=== PATIENT | male | born 1935 | race Asian ===

== ENCOUNTER 2016-11-09 08:34 | Inpatient (IN) | payer OTHER ==
[~2016-11-09] VITALS: Ht 170.2 cm; Wt 63.0 kg
--- NOTE | ~2016-11-09 | EKG ---
[place] [address] [facility] [place] [address] ELECTROCARDIOGRAM REPORT Name: NILA MCCOY Room #: 430-P ADM IN .R.#: [id number] Admission: 11/09/16 Attend Phys: Ian Wolf MD Discharge: Date of : 31 Report #: [id number] THIS REPORT FOR: //name// [facility] ED Test Date: 2016-11-09 Test Time: 08:54:15 Pat Name: NILA MCCOY Department: Room: 430 Gender: M Customer Assistance Associate: Filemon ARCE : 1935 Requested By: Deanna Wright Order Number: [id number] MD: Calvin Paul Measurements Intervals [place] Rate: 108 P: -24 RI: 170 QRS: 7 QRSD: 86 T: 32 QT: 377 QTc: 506 Interpretive Statements Sinus tachycardia with occasional atrial premature complexes Borderline ST depression, diffuse leads Prolonged QT interval No previous ECG available for comparison Electronically Signed On 11-10-2016 8:51:12 SALES ATTENDANT by Calvin Paul [email or web address] <ELECTRONICALLY SIGNED> By: Calvin Paul MD, [facility] 11/10/16 0851 Calvin Paul MD, [facility] /EPI
--- NOTE | ~2016-11-09 | 2DMMODE ---
[facility] [place] [address] 2 D/M-MODE ECHOCARDIOGRAM Name: NILA MCCOY Roberto Carlos Room #: 430-P [facility] IN .#: [id number] Admission: 11/09/16 Attend Phys: Ian Wolf MD Discharge: Date of : 31 Date of Service: 11/10/16 1519 Report #: [id number] THIS REPORT FOR: //name// Transthoracic Echocardiography Ordering physician: Lorena Hassan Referring physician: Emiliano Weber Saida A. Travel Money Advisor: Zakia Peña Indications/History: ESTRADA, edema, elevated BNP. Hx: HTN, DM BP: 143 / HR: 95bpm Height: 67in Weight: 139.7lb 87 Study data: M-mode, complete 2D, complete spectral Doppler, and color Doppler. Location: Bedside. Routine. Image quality was adequate. The parasternal window was low. 2D measurements Normal Normal LVID ED 47.4mm 36-57 IVS ED 12.2mm 6-11 LVID ES 33.2mm 23-40 LVPW ED 12.9mm 6-11 LA volume 30ml/m2 16-28 AoRoot diam 21-37 index ED LVOT diameter 21mm 18-23 Findings: Left ventricle: The cavity size was normal. Wall thickness was increased in a pattern of mild LVH. Systolic function was lownormal. The estimated ejection fraction was in the range of 50%. Wall motion was normal. Right ventricle: The cavity size was normal. Systolic function was normal. Right atrium: The atrium was normal in size. Left atrium: The atrium was normal in size. Volume index: 30ml/m2 (S). Aortic valve: Mildly thickened leaflets. Doppler: There was no stenosis. No regurgitation. Peak velocity: 157cm/s (S). [facility] [address] [place] [address] 2 D/M-MODE ECHOCARDIOGRAM Name: NILA MCCOY JR Room #: 430-P [facility] IN ..#: [id number] Admission: 11/09/16 Attend Phys: Ian Wolf MD Discharge: Date of : 31 Date of Service: 11/10/16 1519 Report #: [id number] Mitral valve: Mildly calcified annulus. Doppler: There was no evidence for stenosis. Mild regurgitation. Tricuspid valve: Structurally normal valve. Doppler: There was no evidence for stenosis. Trivial regurgitation. Regurgitant peak velocity: 243cm/s. Peak RV-RA gradient: 24mm Hg (S). Pulmonic valve: Poorly visualized. Doppler: There was no evidence for stenosis. Trivial regurgitation. Pericardium: There was no pericardial effusion. Aorta: Aortic root: The aortic root was normal in size. Pulmonary artery: Systolic pressure was estimated to be 30mm Hg. Diastolic function: Doppler parameters are consistent with abnormal left ventricular relaxation (grade 1 diastolic dysfunction). Systemic veins: Inferior vena cava: The vessel was normal in size; the respirophasic diameter changes were in the normal range (= 50%). Conclusions 1. Left ventricle: The cavity size was normal. Wall thickness was increased in a pattern of mild LVH. Systolic function was lownormal. The estimated ejection fraction was in the range of 50%. Wall motion was normal. Doppler parameters are consistent with abnormal left ventricular relaxation (grade 1 diastolic dysfunction). 2. Aortic valve: Mildly thickened leaflets. There was no stenosis. No regurgitation. 3. Mitral valve: Mildly calcified annulus. Mild regurgitation. 4. Pericardium, extracardiac: There was no pericardial effusion. 5. Pulmonary arteries: Systolic pressure was estimated to be 30mm Hg. <ELECTRONICALLY SIGNED> By: Calvin Paul MD, [facility] 11/10/16 1630 1519 29 Calvin Paul MD, [facility] /kate
[~2016-11-09 08:34] MED LIST: APIDRA SOL100 UNIT/1 SQ; CALCIUM 600 +1 EAC1 PO; CLONAZEPAM 0.50.5 M1 PO; FUROSEMIDE 20 M20 MG PO; GLYBURID-METFO1 EAC2 PO; JANUVIA100 MG PO; LEVEMIR SUBQ; LISINOPRIL20 MG PO; PROTONIX40 M1 PO; SLOW RELEASE I160 M1 PO
[2016-11-09 08:35] VITALS: BP 193/73
[2016-11-09 09:13] LABS: ABSOLUTE NEUTROPHILS 3.3 thou/uL (1.4-8.2); BASOPHILS 0.8 % (0.0-2.0); HEMATOCRIT 27.1 % (42.0-52.0); HEMOGLOBIN 8.3 gm/dL (14.0-18.0); MCH 24.5 pg (26.0-34.0); MCHC 30.6 % (28.0-37.0); MCV 79.9 fL (80.0-100.0); MONOCYTES 8.7 % (1.0-8.0); PLATELET COUNT 228 thou/uL (150-400); POLYS 69.5 % (36.0-66.0); RBC 3.39 mil/uL (4.50-6.00); RDW 15.6 % (10.5-14.5); WBC 4.8 thou/uL (4.0-11.0)
[2016-11-09 09:15] LABS: MANUAL DIFF NO
[2016-11-09 09:19] LABS: ANION GAP 11 mmol/L (7-16); BUN 17 mg/dL (7-18); CALCIUM 9.1 mg/dL (8.5-10.1); CHLORIDE 103 mmol/L (98-107); CO2 24 mmol/L (21-32); CREATININE 1.2 mg/dL (0.6-1.3); GLUCOSE 304 mg/dL (70-99); SODIUM 138 mmol/L (136-145)
[2016-11-09 09:32] LABS: NT-PRO BRAIN NAT PEPTIDE 314 pg/mL (<300); TROPONIN-I < 0.04 ng/mL (<0.04-0.07)
[2016-11-09 12:22] VITALS: BP 131/68; BP 133/73; BP 148/87; BP 150/77
[2016-11-09 16:39] VITALS: BP 149/70
[2016-11-09 17:29] VITALS: BP 173/75
[2016-11-09 20:00] VITALS: BP 151/65
[2016-11-10 04:49] VITALS: BP 152/67
[2016-11-10 06:55] LABS: ABSOLUTE NEUTROPHILS 3.2 thou/uL (1.4-8.2); BASOPHILS 0.9 % (0.0-2.0); EOSINOPHILS 3.1 % (0.0-3.0); HEMOGLOBIN 9.9 gm/dL (14.0-18.0); LYMPHOCYTES 18.5 % (24.0-44.0); MCH 24.3 pg (26.0-34.0); MCHC 30.8 % (28.0-37.0); MCV 78.8 fL (80.0-100.0); MONOCYTES 11.1 % (1.0-8.0); PLATELET COUNT 237 thou/uL (150-400); POLYS 66.4 % (36.0-66.0); RBC 4.06 mil/uL (4.50-6.00); RDW 15.3 % (10.5-14.5); WBC 4.9 thou/uL (4.0-11.0)
[2016-11-10 06:58] LABS: MANUAL DIFF NO
[2016-11-10 07:22] LABS: ALBUMIN 3.8 g/dL (3.4-5.0); CALCIUM 9.4 mg/dL (8.5-10.1); CREATININE 1.1 mg/dL (0.6-1.3); MAGNESIUM 2.1 mg/dL (1.8-2.4); POTASSIUM 3.8 mmol/L (3.5-5.1); TOTAL BILIRUBIN 0.5 mg/dL (<0.1-1.0); TOTAL PROTEIN 7.8 g/dL (6.4-8.2)
[2016-11-10 08:00] VITALS: BP 143/87
[2016-11-10 16:42] VITALS: BP 147/63
[2016-11-10 20:00] VITALS: BP 136/72
[2016-11-11 05:58] LABS: HEMATOCRIT 31.5 % (42.0-52.0); HEMOGLOBIN 9.8 gm/dL (14.0-18.0); MCH 24.3 pg (26.0-34.0); MCV 78.5 fL (80.0-100.0); PLATELET COUNT 230 thou/uL (150-400); RBC 4.02 mil/uL (4.50-6.00); RDW 15.3 % (10.5-14.5); WBC 5.3 thou/uL (4.0-11.0)
[2016-11-11 06:00] VITALS: BP 145/59
[2016-11-11 06:00] LABS: MANUAL DIFF YES
[2016-11-11 06:09] LABS: CREATININE 1.2 mg/dL (0.6-1.3)
[2016-11-11 06:46] LABS: ABSOLUTE NEUTROPHILS 3.6 thou/uL (1.4-8.2); TOTAL CELL COUNT 100
[2016-11-11] MEDS ORDERED: METFORMIN HCL500 MG PO (13:02)
[2016-11-11 13:31] VITALS: BP 153/67
== END 2016-11-11 16:26 | disposition home or self-care (01) | DRG 812 ==
LOC: ER 08:34 → 4E 11:37 → EROBS 11:37 → 4E 16:36
PROVIDERS: Emergency Medicine; Internal Medicine Endocrinology, Diabetes & Metabolism; Nurse Practitioner
PROC: 30233N1 Transfusion of Nonautologous Red Blood Cells into Peripheral Vein, Percutaneous Approach (ICD-10-PCS; principal; 2016-11-09)
DX: D64.9 Anemia, unspecified (principal); K92.2 Gastrointestinal hemorrhage, unspecified; E11.9 Type 2 diabetes mellitus without complications; M54.9 Dorsalgia, unspecified; K62.1 Rectal polyp; I50.9 Heart failure, unspecified; I11.0 Hypertensive heart disease with heart failure; E53.8 Deficiency of other specified B group vitamins; G89.29 Other chronic pain; R00.0 Tachycardia, unspecified; I87.8 Other specified disorders of veins; Q27.33 Arteriovenous malformation of digestive system vessel; Z87.891 Personal history of nicotine dependence; Z80.0 Family history of malignant neoplasm of digestive organs; Z91.14 Patient's other noncompliance with medication regimen; Z79.899 Other long term (current) drug therapy
CPT/HCPCS: 10783

== ENCOUNTER 2017-03-13 11:07 | Inpatient (IN) | payer OTHER ==
[~2017-03-13] VITALS: Ht 170.2 cm; Wt 72.1 kg
--- NOTE | ~2017-03-13 | HC ---
[facility] [place] [address] CONSULTATION Name: NILA MCCOY Room #: 431-P ADM IN M.R.#: [id number] Admission: 03/13/17 Attend Phys: Mikhail Duff MD Discharge: Date of : 33 Report #: [id number] THIS REPORT FOR: //name// CC: Mikhail Johnsonquez DATE OF SERVICE: 03/14/2017 REASON FOR CONSULTATION: Anemia. CONSULTING PHYSICIAN: Mikhail Duff MD. HISTORY OF PRESENT ILLNESS: This is an elderly gentleman who is well known to our GI service. 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 I suspect he has aortic malformation also in his small intestine based on the fact that these are notorious to be present throughout the GI tract. He has been admitted with a hemoglobin of 5.3 along with shortness of breath. He also carries a diagnosis of diabetes mellitus, and hypertension. He is seen by the GI team here at [facility] and underwent an upper and lower endoscopy in August 2016 that showed AVMs in stomach and colon. He also had small rectal polyp. There was tubular adenoma. He has not any bright red blood or melanotic stools. He denies any abdominal pain. REVIEW OF SYSTEMS: As in HPI, otherwise 10.10 negative. PAST MEDICAL HISTORY: 1. Gastrointestinal AVMs. 2. Hypertension. 3. Diabetes mellitus. 4. Anemia. 5. Hemorrhoids. ALLERGIES: No known drug allergies. MEDICATIONS: Reviewed and are negative. SOCIAL HISTORY: Denies tobacco, alcohol or illegal drug use. FAMILY HISTORY: There are no family members with colorectal cancer or GI malignancies. PHYSICAL EXAMINATION: GENERAL: Alert and oriented to time, place and person, cooperative, appears in moderate distress with shortness of breath. VITAL SIGNS: Temperature 98.1, heart rate 89, respiration 16, blood pressure [facility] [address] [place] [address] CONSULTATION Name: NILA MCCOY JR Room #: 431-P [facility]#: [id number] Admission: 03/13/17 Attend Phys: Mikhail Duff MD Discharge: Date of : 33 Report #: [id number] 125/75, oxygen saturation 100% on 6 liters oxygen. NECK: Supple. Midline trachea. Thyroid nonpalpable. CARDIOVASCULAR: Regular rhythm. No murmurs. RESPIRATORY: Bilateral crackles noted. ABDOMEN: Soft, nontender. Bowel sounds are present. EXTREMITIES: No cyanosis, clubbing or edema. SKIN: Warm and dry. No rashes present. NEUROLOGIC: Cranial nerves were grossly intact. No focal deficits. LABORATORY DATA: Hemoglobin 5.3 on admission, hemoglobin 7.2 after 2 units of transfusion. White count 6.6, platelets 191. Normal liver functions, creatinine 1.2. DIAGNOSTIC IMPRESSION AND PLAN: Anemia. This appears to be multifactorial anemia with underlying diabetes mellitus, hypertension and also blood loss from slow oozing from arteriovenous malformations. Hemoglobin 5.2 at admission after 2 units of transfusion is 7.2. RECOMMENDATIONS: 1. Once the patients have arterial venous malformations in the GI tract, there are thousands of AVMs in the small intestine. These ooze slowly and can result in anemia. It is very difficult to cauterize all these AVMs considering the fact that there are so many and they return after cauterization. Hence, I recommend obtaining CBC on a monthly basis and to transfuse once the hemoglobin drops than 7.0. This can be done on an outpatient basis so as to prevent inpatient admissions. 2. I do not recommend any further endoscopic evaluation at this time. Thank you for allowing me to participate in the care of the patient. By: 0938 2104 Elieser Bowie MD /babak
--- NOTE | ~2017-03-13 | H ---
[facility] [place] [address] HISTORY AND PHYSICAL Name: NILA MCCOY Roberto Carlos CHASE Room #: 431-P [facility] IN M.R.#: [id number] Admission: 03/13/17 Attend Phys: Mikhail Duff MD Discharge: Date of : 33 Report #: [id number] THIS REPORT FOR: //name// CC: Mikhail Weber REASON FOR PRESENTATION: Shortness of breath. HISTORY OF PRESENT ILLNESS: This is very well known patient to us. 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 He presented complaining of shortness of breath on exertion. He denies any GI symptoms. He previously required blood transfusions and had an upper endoscopy and lower endoscopy as of August of 2016 and at that time, he had those AV malformations proven, seen in his stomach and his colon. He also had small rectal polyp that was consistent with tubular adenoma. He denies any other illnesses that might contribute to anemia. On presentation to the emergency room, he was found to have a hemoglobin of 5.6 and was admitted for further evaluation and management. PAST MEDICAL HISTORY: 1. Repeated episodes of GI bleeding. 2. Hypertension. 3. Diabetes mellitus. 4. AV malformations. 5. Hemorrhoids. MEDICATIONS: 1. Metformin. 2. Pantoprazole. 3. Lisinopril. 4. Sitagliptin. 5. Insulin Levemir 53 units. 6. Calcium carbonate p.r.n. ALLERGIES: No known drug allergies. REVIEW OF SYSTEMS: GENERAL: No fever or chills, but significant shortness of breath on exertion. Significant weakness. CARDIOVASCULAR: Significant for shortness of breath. PULMONARY: No cough or hemoptysis but significant for shortness of breath. GASTROINTESTINAL: As per the history of present illness but no known hematochezia or melena. SKIN: Chronic bilateral lower extremity venous stasis changes. NEUROLOGICAL: No weakness. No headache. No dizziness. PHYSICAL EXAMINATION: [facility] [address] [place] [address] HISTORY AND PHYSICAL Name: NADINENILA P Room #: 431-P [facility]#: [id number] Admission: 03/13/17 Attend Phys: Mikhail Duff MD Discharge: Date of : 33 Report #: [id number] GENERAL: He is alert, oriented, in no apparent distress. VITAL SIGNS: Pulse is slightly tachycardic at 113, blood pressure 144/73, temperature 36.8. HEAD AND NECK: No jugular venous distention, no bruit, no thyromegaly. CHEST: Clear to auscultation bilaterally. CARDIOVASCULAR: Regular with no rub detected. ABDOMEN: Distended. No tenderness, no guarding, no rigidity. LOWER EXTREMITIES: +2 edema with chronic venous stasis changes. LABORATORY VALUES: Reviewed. Hemoglobin is 5.7 with an MCV of 76. Chemistry: All within normal range other than glucose of 201. ASSESSMENT, IMPRESSION, PLAN: 1. Gastrointestinal bleeding. 2. Anemia. 3. Hypertension. 4. Diabetes mellitus. 5. 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 6. Admission. 7. Because of his symptoms will transfuse. 8. Serial H and H. 9. PPI. 10. Resume blood pressure, blood sugar medications. 11. GI consultation. 12. Ultimately we will need fci plan for his arteriovenous malformations including steroids, thalidomide and we will defer that to the GI team. <ELECTRONICALLY SIGNED> By: Mikhail Duff MD 03/14/17 0656 1239 1432 Mikhail Duff MD /nt
--- NOTE | ~2017-03-13 | EKG ---
[place] [address] [facility] [facility] [place] [address] ELECTROCARDIOGRAM REPORT Name: NILA MCCOY Room #: 431-P ADM IN M.R.#: [id number] Admission: 03/13/17 Attend Phys: Mikhail Duff MD Discharge: Date of : 33 Report #: [id number] THIS REPORT FOR: //name// [facility] ED Test Date: 2017-03-13 Test Time: 11:55:00 Pat Name: NILA MCCOY Department: Room: [facility] Gender: M Global Creative Chairman: Hilary ROSSI : 1935 Requested By: Deanna Wright Order Number: [id number] MD: Calvin Paul Measurements Intervals [place] Rate: 102 P: 44 NV: 209 QRS: 38 QRSD: 93 T: 190 QT: 329 QTc: 429 Interpretive Statements Probable Sinus tachycardia Frequent premature ventricular complexes Borderline prolonged NV interval Nonspecific ST and T wave abnormality Compared to ECG 11/09/2016 08:54:15 Ventricular premature complex(es) now present Electronically Signed On 03-14-2017 13:59:49 CDT by Calvin Paul [email or web address] <ELECTRONICALLY SIGNED> By: Calvin Paul MD, [facility] 03/14/17 1359 1155 1155 Calvin Paul MD, [facility] /EPI
--- NOTE | ~2017-03-13 | EKG ---
[address] [place] [address] ELECTROCARDIOGRAM REPORT Name: NILA MCCOY Room #: 431-P ADM IN M.R.#: [id number] Admission: 03/13/17 Attend Phys: Mikhail Duff MD Discharge: Date of : 33 Report #: [id number] THIS REPORT FOR: //name// [facility] ED Test Date: 2017-03-13 Test Time: 12:51:31 Pat Name: NILA MCCOY Department: Room: [facility] Gender: M Cleaning Supervisor: Hilary ROSSI : 1935 Requested By: Deanna Wright Order Number: [id number] MD: Calvin Paul Measurements Intervals [place] Rate: 108 P: -28 NV: 198 QRS: 22 QRSD: 85 T: 180 QT: 301 QTc: 404 Interpretive Statements Sinus tachycardia Ventricular premature complex Repol abnrm suggests ischemia Compared to ECG 11/09/2016 08:54:15 No significant change was found Electronically Signed On 03-14-2017 14:00:51 CDT by Calvin Paul [email or web address] <ELECTRONICALLY SIGNED> By: Calvin Paul MD, [facility] 03/14/17 1400 1251 1251 Calvin Paul MD, [facility] /EPI
[2017-03-13 11:07] VITALS: BP 144/73
[~2017-03-13 11:07] MED LIST changes: +METFORMIN HCL500 MG PO
[2017-03-13 11:24] LABS: ABSOLUTE NEUTROPHILS 2.8 thou/uL (1.4-8.2)
[2017-03-13 11:26] LABS: EOSINOPHILS 2.9 % (0.0-3.0); LYMPHOCYTES 26.8 % (24.0-44.0); MCH 22.9 pg (26.0-34.0); MCHC 29.8 g/dL (28.0-37.0); MCV 76.7 fL (80.0-100.0); MONOCYTES 7.8 % (1.0-8.0); PLATELET COUNT 224 thou/uL (150-400); POLYS 61.5 % (36.0-66.0); RBC 2.46 mil/uL (4.50-6.00); WBC 4.5 thou/uL (4.0-11.0)
[2017-03-13 11:30] LABS: MANUAL DIFF NO
[2017-03-13 11:32] LABS: HEMATOCRIT 18.9 % (42.0-52.0); HEMOGLOBIN 5.6 gm/dL (14.0-18.0)
[2017-03-13 11:39] LABS: ABG SAMPLE TYPE ARTERIAL; BE(vivo) -4.2 mmol/L (-2 to +3); HCO3 19.9 mmol/L (22.0-26.0); LACTATE 3.26 mmol/L (0.5-2.0); O2Hb 90.8 % (92.0-98.0); PCO2 31.8 mmHg (35.0-45.0); PO2 69.8 mmHg (80.0-100.0); pH 7.415 (7.360-7.450); sO2 94.5 % (92.0-98.0); tCO2 20.9 mmol/L (24.0-30.0)
[2017-03-13 11:40] LABS: STICK SITE R.RADIAL
[2017-03-13 11:46] LABS: CALCIUM 8.5 mg/dL (8.5-10.1); CREATININE 1.2 mg/dL (0.7-1.3); POTASSIUM 3.5 mmol/L (3.5-5.1)
[2017-03-13 12:44] LABS: MCHC 29.9 g/dL (28.0-37.0); MCV 76.8 fL (80.0-100.0); RBC 2.31 mil/uL (4.50-6.00); RDW 15.8 % (10.5-14.5); WBC 5.5 thou/uL (4.0-11.0)
[2017-03-13 12:46] LABS: HEMATOCRIT 17.7 % (42.0-52.0); HEMOGLOBIN 5.3 gm/dL (14.0-18.0)
[2017-03-13 13:40] VITALS: BP 111/50
[2017-03-13 14:03] VITALS: BP 130/57; BP 138/60
[2017-03-13 15:59] VITALS: BP 129/58
[2017-03-13 17:40] VITALS: BP 131/55; BP 136/70; BP 138/60
[2017-03-13 20:30] VITALS: BP 136/70
[2017-03-14 04:00] VITALS: BP 150/72
[2017-03-14 05:59] LABS: HEMATOCRIT 23.6 % (42.0-52.0); HEMOGLOBIN 7.2 gm/dL (14.0-18.0); MCH 24.4 pg (26.0-34.0); MCHC 30.6 g/dL (28.0-37.0); MCV 79.7 fL (80.0-100.0); RBC 2.96 mil/uL (4.50-6.00); RDW 16.1 % (10.5-14.5); WBC 6.6 thou/uL (4.0-11.0)
[2017-03-14 06:10] LABS: INR 1.1; PROTIME 10.9 Seconds (9.3-11.4)
[2017-03-14 06:24] LABS: ALBUMIN 3.4 g/dL (3.4-5.0); CALCIUM 8.6 mg/dL (8.5-10.1); CREATININE 1.2 mg/dL (0.7-1.3); POTASSIUM 4.4 mmol/L (3.5-5.1); TOTAL BILIRUBIN 0.4 mg/dL (<0.1-1.0); TOTAL PROTEIN 7.1 g/dL (6.4-8.2)
[2017-03-14 07:47] VITALS: BP 125/75
[2017-03-14 15:29] VITALS: BP 127/68
[2017-03-14 20:00] VITALS: BP 123/44
[2017-03-15 04:30] VITALS: BP 123/53
[2017-03-15 05:43] LABS: HEMATOCRIT 21.5 % (42.0-52.0); MCH 24.8 pg (26.0-34.0); MCHC 31.5 g/dL (28.0-37.0); MCV 78.6 fL (80.0-100.0); RBC 2.73 mil/uL (4.50-6.00); WBC 8.4 thou/uL (4.0-11.0)
[2017-03-15 05:53] LABS: HEMOGLOBIN 6.8 gm/dL (14.0-18.0)
[2017-03-15 05:55] LABS: ALBUMIN 3.2 g/dL (3.4-5.0); CALCIUM 8.4 mg/dL (8.5-10.1); CREATININE 1.2 mg/dL (0.7-1.3); PHOSPHORUS 3.3 mg/dL (2.5-4.9); POTASSIUM 3.8 mmol/L (3.5-5.1)
[2017-03-15 07:09] VITALS: BP 115/51
[2017-03-15 08:37] VITALS: BP 120/29; BP 126/60
[2017-03-15 14:52] VITALS: BP 121/58
[2017-03-15 20:35] VITALS: BP 127/59
[2017-03-16 01:21] VITALS: BP 137/68
[2017-03-16 04:49] VITALS: BP 123/61
[2017-03-16 07:21] LABS: ABSOLUTE NEUTROPHILS 5.7 thou/uL (1.4-8.2); BASOPHILS 0.4 % (0.0-2.0); EOSINOPHILS 2.7 % (0.0-3.0); HEMATOCRIT 27.4 % (42.0-52.0); HEMOGLOBIN 8.4 gm/dL (14.0-18.0); LYMPHOCYTES 9.9 % (24.0-44.0); MCH 24.6 pg (26.0-34.0); MCHC 30.6 g/dL (28.0-37.0); MCV 80.4 fL (80.0-100.0); MONOCYTES 9.8 % (1.0-8.0); PLATELET COUNT 196 thou/uL (150-400); POLYS 77.2 % (36.0-66.0); RBC 3.41 mil/uL (4.50-6.00); RDW 17.2 % (10.5-14.5); WBC 7.4 thou/uL (4.0-11.0)
[2017-03-16 07:22] LABS: MANUAL DIFF NO
[2017-03-16 07:33] LABS: CALCIUM 8.6 mg/dL (8.5-10.1); MAGNESIUM 2.1 mg/dL (1.8-2.4); POTASSIUM 4.1 mmol/L (3.5-5.1)
[2017-03-16 08:27] VITALS: BP 119/61
[2017-03-16 12:05] VITALS: BP 116/80
[2017-03-16 13:56] VITALS: BP 116/80
[2017-03-16 16:08] VITALS: BP 120/50
== END 2017-03-16 17:01 | disposition home or self-care (01) | DRG 300 ==
LOC: ER 11:07 → 4E 12:18 → EROBS 12:18 → 4E 13:15
PROVIDERS: Emergency Medicine; Hospitalist; Internal Medicine
PROC: 30233N1 Transfusion of Nonautologous Red Blood Cells into Peripheral Vein, Percutaneous Approach (ICD-10-PCS; principal; 2017-03-14)
DX: Q27.33 Arteriovenous malformation of digestive system vessel (principal); D62 Acute posthemorrhagic anemia; K92.2 Gastrointestinal hemorrhage, unspecified; E11.9 Type 2 diabetes mellitus without complications; I10 Essential (primary) hypertension; K59.00 Constipation, unspecified; D50.9 Iron deficiency anemia, unspecified; Z79.899 Other long term (current) drug therapy; Z86.010 Personal history of colon polyps; Z87.891 Personal history of nicotine dependence
CPT/HCPCS: 10183

== ENCOUNTER → 2017-04-01 | Outpatient (CLI) | payer OTHER ==
[~2017-04-01] VITALS: Ht 170.2 cm; Wt 68.0 kg
[~2017-04-01] MED LIST changes: +GLYBURIDE-METF1 EACH PO; +SLOW IRON PO
--- NOTE | ~2017-04-01 | P ---
[facility] [place] [address] PROCEDURE REPORT Name: NADINENILA P JR Room #: REG [facility]#: [id number] Admission: 04/01/17 Attend Phys: Molina Goodrich MD Discharge: Date of : 33 Report #: [id number] THIS REPORT FOR: //name// CC: Molina Weber MD OUTPATIENT SMALL BOWEL ENDOSCOPY REPORT BRIEF HISTORY: The patient is an 81-year-old male with known history of arteriovascular malformations of the stomach and colon and also noted to have some on the capsule endoscopy of the small bowel with continued problems with anemia. PREOPERATIVE DIAGNOSIS: Chronic iron deficiency anemia and history of AVMs of the GI tract. POSTOPERATIVE DIAGNOSES: 1. Multiple AVMs of the small bowel. 2. Multiple AVMs of the stomach. 3. 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 MEDICATIONS: Deep sedation with propofol per anesthesia. SPECIMEN: None. ESTIMATED BLOOD LOSS: 3 mL. PROCEDURE: Small bowel endoscopy with hemostasis. FINDINGS: Prior to propofol sedation, procedure of small bowel endoscopy and treatment of AVMs was discussed with the patient as well as potential risks and its complications. He indicates he understands and desires to proceed. DESCRIPTION OF PROCEDURE: With the patient in left lateral decubitus position, the Maximusi pediatric video colonoscope was introduced the oropharynx and advanced under direct vision. Examination of the esophagus, through its entire length revealed normal appearing mucosa. The squamocolumnar junction was inspected and noted be unremarkable. We then advanced the scope through the stomach, across the pylorus and advance the scope as far as possible into the small bowel. At that point, the scope was slowly withdrawn and careful circumferential views obtained. The patient was noted to have multiple vascular malformations in the jejunum. They were at the proximal jejunum and most of just distal to the ligament of Treitz. About 5 or 6 were identified and treated. There were clusters of about 3 just distal to the ligament of Treitz and there was a small amount of blood in this area suggesting ongoing bleeding. All lesions were treated with BICAP probe. There were typical appearing vascular malformations [facility] [address] [place] [address] PROCEDURE REPORT Name: NILA MCCOY Room #: REG [facility].#: [id number] Admission: 04/01/17 Attend Phys: Molina Goodrich MD Discharge: Date of : 33 Report #: [id number] largest was about 5-6 mm. Two of them oozed a little bit on following treatment but the bleeding was completely controlled. As we withdrew the scope through the duodenum, mucosa was normal. No mucosal lesions were seen. No AVMs were seen. No ulcers were seen. Scope was withdrawn back in the stomach, was examined on end view as well as retroflexed views. Examination of the stomach revealed again about 5 or 6 AVMs, mostly in the body and the fundus. One of them was actually within a small to moderate size hiatus hernia. None of them were bleeding, all were treated with BICAP probe. All visible AVMs were treated. Scope was withdrawn. The patient tolerated the procedure well. CONDITION OF THE PATIENT UPON DISCHARGE: Following procedure, the patient drowsy, aroused, conversant, discharged to home when fully ambulatory. INSTRUCTIONS TO THE PATIENT AND FAMILY AT THE TIME OF DISCHARGE: The patient with once again has multiple vascular malformations. He is to follow up with Dr. Emiliano Weber. More than likely, he has more AVMs. However, multiple were treated today and hopefully this will help with regards to management of his iron deficiency anemia. He should continue on iron supplementation and if there remains difficulty in maintaining hemoglobin, repeating the procedure would be reasonable. Also, he was noted to have colonic AVMs and repeat a colonoscopy would also be reasonable. Unfortunately, these lesions are not always visible and visibility may come and go. If anemia continued to be a problem, repeating M2 capsule study would also be reasonable. If there are additional AVMs on M2 capsule study, not within the reache of a Push enteroscope, double balloon endoscopy at an another facility may be a consideration as well. <ELECTRONICALLY SIGNED> By: Molina Goodrich MD 04/02/17 0820 0900 1305 Molina Goodrich MD /nt
[2017-04-01 09:47] LABS: ABG SAMPLE TYPE ARTERIAL; BE(vivo) -0.3 mmol/L (-2 to +3); HCO3 24.5 mmol/L (22.0-26.0); LACTATE 1.42 mmol/L (0.5-2.0); O2(CT) 10.6 mL/dL (15.0-23.0); PCO2 40.3 mmHg (35.0-45.0); PO2 264.2 mmHg (80.0-100.0); STICK SITE R.BRACHIAL; pH 7.401 (7.360-7.450); sO2 99.6 % (92.0-98.0); tCO2 25.7 mmol/L (24.0-30.0)
== END | disposition home or self-care (01) ==
LOC: GI 06:34
PROVIDERS: Anesthesiology
DX: D50.8 Other iron deficiency anemias (principal); Q27.33 Arteriovenous malformation of digestive system vessel
CPT/HCPCS: 62110; 62900

== ENCOUNTER 2017-05-29 10:29 | Inpatient (IN) | payer OTHER ==
[~2017-05-29] VITALS: Ht 170.2 cm; Wt 66.2 kg
[2017-05-29] VITALS (8 sets, daily range): BP systolic 124–155; BP diastolic 59–78
--- NOTE | ~2017-05-29 | H ---
[facility] [place] [address] HISTORY AND PHYSICAL Name: NILA MCCOY Room #: 443-P ADM IN M.R.#: [id number] Admission: 05/29/17 Attend Phys: Mikhail Duff MD Discharge: Date of : 33 Report #: [id number] THIS REPORT FOR: //name// CC: Mikhail Weber REASON FOR PRESENTATION: Shortness of breath. HISTORY OF PRESENT ILLNESS: The patient is well known to us. He carries a diagnosis of AV malformation in both the stomach and the colon, culminating into repeated episodes of GI bleeding, had been evaluated numerous times previously for the same symptoms. He requires blood transfusion sporadically. He presented complaining of shortness of breath with no associated chest pain. No syncope. He thought that he saw some blood with his bowel movement. No nausea or vomiting. No syncope. He was advised the last time to have a CBC checked every month and transfuse accordingly to avoid inpatient hospitalizations, however, his tells me that he has not been following those instructions. On presentation to the emergency room, he was found to have a hemoglobin of 6.7 and will be admitted for observation and transfusion. PAST MEDICAL HISTORY: 1. Hypertension. 2. Diabetes mellitus. 3. Colon and stomach AV malformations. 4. Repeated episodes of GI bleeding. 5. Uncontrolled blood sugar readings. 6. Hemorrhage. ALLERGIES: No known drug allergies. MEDICATIONS: 1. Insulin Levemir. 2. Lisinopril. 3. Clonazepam. 4. Lasix. 5. Pantoprazole. 6. Glyburide/metformin. FAMILY HISTORY: Significant for hypertension. PAST SURGICAL HISTORY: Repeated colonoscopies. SOCIAL HISTORY: No drug or alcohol abuse. REVIEW OF SYSTEMS: GENERAL: No fever or chills. CARDIOVASCULAR: No chest pain or palpitation. [facility] [address] [place] [address] HISTORY AND PHYSICAL Name: NILA MCCOY Room #: 443-P [facility] IN [facility]#: [id number] Admission: 05/29/17 Attend Phys: Mikhail Duff MD Discharge: Date of : 33 Report #: [id number] PULMONARY: Some shortness of breath. GASTROINTESTINAL: As per the history of present illness. GENITOURINARY: No urinary frequency or urgency. MUSCULOSKELETAL: Occasional back pain. SKIN: Diffuse bilateral lower extremity chronic venous stasis changes. PHYSICAL EXAMINATION: GENERAL: The patient is alert, oriented, in no apparent distress. VITAL SIGNS: Blood pressure is 142/69, temperature 36.8. Pulse rate was 74, respiratory rate is 18. HEAD AND NECK: No jugular venous distention, no bruit, no thyromegaly. CHEST: Clear to auscultation with no crackles or wheezes. CARDIOVASCULAR: Regular with no rub detected. ABDOMEN: Soft, nontender with no hepatosplenomegaly. EXTREMITIES: Lower extremities, some chronic venous stasis changes. LABORATORY DATA: Reviewed the most recent hemoglobin for this patient was 6.8. His previous hemoglobin from the 03/15/2017 was 9.2. White blood cell count is depressed at . Chemistry is with no abnormalities other than a high blood sugar. INR is 1.0. Platelets is 240. IMAGING: Chest x-ray reviewed, no acute process. ASSESSMENT, IMPRESSION AND PLAN: 1. Repeated episodes of GI bleeding due to AV malformation in the colon and the stomach. 2. Anemia, symptomatic. 3. Hypertension. 4. Diabetes mellitus. 5. Admission. 6. units. 7. Transfuse. 8. PPI. 9. Resume blood pressure medications. 10. Resume blood sugar medications. Reviewed the Gastroenterology notes from the previous admission, they have advised the patient to have monthly CBC with transfusion p.r.n.; however, the patient did not stick with the instructions discussed with his at bedside. Might consider low dose estrogens to further control AV malformation, bleeding and prevent recurrent admissions. By: 1212 1240 Mikhail Duff MD /nt
--- NOTE | ~2017-05-29 | EKG ---
[address] [place] [employer] [address] ELECTROCARDIOGRAM REPORT Name: MARYAM MCCOYISAI Azevedo Room #: 443-P [facility] IN [facility]#: [id number] Admission: 05/29/17 Attend Phys: Mikhail Duff MD Discharge: 05/30/17 Date of : 33 Report #: [id number] THIS REPORT FOR: //name// [facility] ED Test Date: 2017-05-29 Test Time: 10:41:54 Pat Name: NILA MCCOY Department: Room: [facility] Gender: M [employer] Clerk: HOM : 1935 Requested By: Bg Lopez Order Number: [id number] MD: Semaj Baum Measurements Intervals [place] Rate: 104 P: 115 ME: 230 QRS: 45 QRSD: 86 T: 40 QT: 371 QTc: 488 Interpretive Statements Sinus tachycardia Atrial premature complex Prolonged ME interval Nonspecific repol abnormality, diffuse leads Compared to ECG 03/13/2017 12:51:31 Atrial premature complex(es) now present First degree AV block now present Ventricular premature complex(es) no longer present Possible ischemia no longer present Electronically Signed On 05-30-2017 22:16:21 CDT by Semaj Baum [email or web address] <ELECTRONICALLY SIGNED> By: Semaj Baum MD 05/30/17 2216 1041 1041 Semaj Baum MD /EPI
[2017-05-29 11:22] LABS: ABSOLUTE NEUTROPHILS 2.9 thou/uL (1.4-8.2); HEMOGLOBIN 6.8 gm/dL (14.0-18.0); WBC 3.9 thou/uL (4.0-11.0)
[2017-05-29 11:24] LABS: BASOPHILS 0.9 % (0.0-2.0); EOSINOPHILS 2.9 % (0.0-3.0); HEMATOCRIT 21.7 % (42.0-52.0); LYMPHOCYTES 14.6 % (24.0-44.0); MCH 25.8 pg (26.0-34.0); MCHC 31.5 g/dL (28.0-37.0); MCV 81.8 fL (80.0-100.0); MONOCYTES 6.7 % (1.0-8.0); PLATELET COUNT 240 thou/uL (150-400); POLYS 74.9 % (36.0-66.0); RBC 2.65 mil/uL (4.50-6.00); RDW 16.1 % (10.5-14.5)
[2017-05-29 11:27] LABS: ANION GAP 11 mmol/L (7-16); BUN 19 mg/dL (7-18); CHLORIDE 103 mmol/L (98-107); CO2 26 mmol/L (21-32); CREATININE 1.2 mg/dL (0.7-1.3); GLUCOSE 323 mg/dL (74-106); SODIUM 140 mmol/L (136-145)
[2017-05-29 11:32] LABS: MANUAL DIFF NO
[2017-05-29 11:35] LABS: ALBUMIN 3.8 g/dL (3.4-5.0); ALKALINE PHOSPHATASE 106 U/L (46-116); APTT 24.4 Seconds (24.5-32.8); PROTIME 9.9 Seconds (9.3-11.4); SGOT 31 U/L (15-37); SGPT 50 U/L (30-65); TOTAL BILIRUBIN 0.3 mg/dL (<0.1-1.0); TOTAL PROTEIN 7.5 g/dL (6.4-8.2); TROPONIN-I < 0.04 ng/mL (<0.04-0.07)
[2017-05-29 11:45] LABS: CK-MB MASS 6.3 ng/mL (<0.5-3.6)
[2017-05-29] MEDS ORDERED: JANUVIA50 MG PO (13:37)
[2017-05-30 04:50] VITALS: BP 135/64
[2017-05-30 06:03] LABS: HEMATOCRIT 27.6 % (42.0-52.0); MCH 26.9 pg (26.0-34.0); MCHC 32.4 g/dL (28.0-37.0); MCV 83.1 fL (80.0-100.0); RBC 3.32 mil/uL (4.50-6.00); RDW 15.6 % (10.5-14.5); WBC 5.3 thou/uL (4.0-11.0)
[2017-05-30 06:04] LABS: HEMOGLOBIN 8.9 gm/dL (14.0-18.0)
[2017-05-30 09:02] VITALS: BP 148/64
[2017-05-30] MEDS ORDERED: JANUVIA100 MG PO (12:27)
[2017-05-30 12:42] VITALS: BP 148/64
== END 2017-05-30 13:15 | disposition home or self-care (01) | DRG 378 ==
LOC: ER 10:29 → EROBS 11:53 → 4S 12:39
PROVIDERS: Emergency Medicine; Hospitalist
PROC: 30233N1 Transfusion of Nonautologous Red Blood Cells into Peripheral Vein, Percutaneous Approach (ICD-10-PCS; principal; 2017-05-29)
DX: K55.21 Angiodysplasia of colon with hemorrhage (principal); D62 Acute posthemorrhagic anemia; E11.9 Type 2 diabetes mellitus without complications; K21.9 Gastro-esophageal reflux disease without esophagitis; I50.9 Heart failure, unspecified; I11.0 Hypertensive heart disease with heart failure; Z87.891 Personal history of nicotine dependence; Z82.49 Family history of ischemic heart disease and other diseases of the circulatory system
CPT/HCPCS: 10102

== ENCOUNTER 2017-07-22 12:08 | Inpatient (IN) | payer OTHER ==
[~2017-07-22] VITALS: Ht 170.2 cm; Wt 63.5 kg
--- NOTE | ~2017-07-22 | P ---
[facility] [place] [address] PROCEDURE REPORT Name: NILA MCCOY Room #: 410-P [facility] IN M.R.#: [id number] Admission: 07/22/17 Attend Phys: Nivia Odonnell Discharge: Date of : 33 Report #: [id number] THIS REPORT FOR: //name// CC: Nivia Weber DATE OF SERVICE: 07/23/2017 PROCEDURE PERFORMED: EGD with small-bowel enteroscopy and bleeding control. HISTORY OF PRESENT ILLNESS: The patient is an 81-year-old male with a history of anemia and known history of gastric and duodenal AVMs, plan is for EGD with small-bowel enteroscopy. PROCEDURE: The risks and benefits of the procedure were explained to the patient, those risks including, but not limited to bleeding, perforation, the risk of sedation. He understood these risks and gave informed consent. Sedation was given using propofol per anesthesia. Next, using the Taxi 24/7inon small-bowel enteroscopy, the scope was placed in the patient's mouth and advanced under direct vision through the esophagus, stomach, and into the duodenum. I was able to advance the scope to approximately 110 cm into jejunum. At this point, the scope was then slowly withdrawn. There was no evidence of bleeding throughout the exam today. In the duodenum and jejunum, there were a total of 3 AVMs, none of which were bleeding; however, when treated with a 7-Kittitian bipolar cautery, there was some bleeding, this eventually stopped with further cauterization. No other abnormalities were noted. The scope was then brought back into the patient's stomach and a total of 4 nonbleeding AVMs were noted, all of which were also cauterized with 7-Kittitian bipolar cautery. No other abnormalities were noted in the stomach. Overall, the esophagus was normal. The scope was then withdrawn and the procedure terminated. The patient tolerated the procedure well. IMPRESSION: 1. Four gastric arteriovenous malformations, all cauterized. 2. Three duodenal/jejunum arteriovenous malformations, all cauterized, no evidence of active bleeding. RECOMMENDATIONS: 1. Observe the patient post procedure. 2. Consider discharge today or tomorrow and monitor hemoglobin. [facility] [address] [place] [address] PROCEDURE REPORT Name: NILA MCCOY Room #: 410-P [facility] IN .R.#: [id number] Admission: 07/22/17 Attend Phys: Nivia Odonnell Discharge: Date of : 33 Report #: [id number] Thank you for allowing me to participate in his care. By: 1307 1536 Wagner Smith MD /nt
--- NOTE | ~2017-07-22 | EKG ---
[address] [place] [address] ELECTROCARDIOGRAM REPORT Name: MARYAM MCCOYISAI Azevedo Room #: 410-P ADM IN M.R.#: [id number] Admission: 07/22/17 Attend Phys: Nivia Odonnell Discharge: Date of : 33 Report #: [id number] THIS REPORT FOR: //name// [facility] ED Test Date: 2017-07-22 Test Time: 12:49:29 Pat Name: NILA MCCOY Department: Room: 410 Gender: M Radiographer Angiogram: Filemon JUAREZ : 1935 Requested By: Desire Godoy Order Number: [id number] MD: Semaj Baum Measurements Intervals [place] Rate: 105 P: -64 [place]: 176 QRS: 15 QRSD: 107 T: 13 QT: 355 QTc: 470 Interpretive Statements Ectopic atrial tachycardia, unifocal Atrial premature complex Minimal ST depression, diffuse leads Compared to ECG 05/29/2017 10:41:54 ST (T wave) deviation now present Sinus tachycardia no longer present First degree AV block no longer present Early repolarization no longer present Electronically Signed On 07-22-2017 22:40:30 CDT by Semaj Baum [email or web address] <ELECTRONICALLY SIGNED> By: Semaj Baum MD 07/22/17 2240 1249 1249 Semaj Baum MD /EPI
[~2017-07-22 12:08] MED LIST changes: +JANUVIA50 MG PO
[2017-07-22 12:34] VITALS: BP 129/55
[2017-07-22 13:16] LABS: ABSOLUTE NEUTROPHILS 3.9 thou/uL (1.4-8.2); EOSINOPHILS 2.5 % (0.0-3.0); HEMATOCRIT 23.1 % (42.0-52.0); HEMOGLOBIN 7.3 gm/dL (14.0-18.0); LYMPHOCYTES 10.1 % (24.0-44.0); MCH 25.3 pg (26.0-34.0); MCHC 31.8 g/dL (28.0-37.0); MCV 79.8 fL (80.0-100.0); MONOCYTES 7.4 % (1.0-8.0); PLATELET COUNT 236 thou/uL (150-400); RDW 15.3 % (10.5-14.5); WBC 4.9 thou/uL (4.0-11.0)
[2017-07-22 13:17] LABS: MANUAL DIFF NO
[2017-07-22 13:25] LABS: ANION GAP 11 mmol/L (7-16); BUN 24 mg/dL (7-18); CALCIUM 8.8 mg/dL (8.5-10.1); CHLORIDE 99 mmol/L (98-107); CO2 24 mmol/L (21-32); CREATININE 1.4 mg/dL (0.7-1.3); GLUCOSE 337 mg/dL (74-106); POTASSIUM 4.1 mmol/L (3.5-5.1); SODIUM 134 mmol/L (136-145)
[2017-07-22 13:33] LABS: ALBUMIN 3.9 g/dL (3.4-5.0); ALKALINE PHOSPHATASE 114 U/L (46-116); SGOT 27 U/L (15-37); SGPT 51 U/L (30-65); TOTAL BILIRUBIN 0.3 mg/dL (<0.1-1.0); TOTAL PROTEIN 7.6 g/dL (6.4-8.2); TROPONIN-I < 0.04 ng/mL (<0.04-0.07)
[2017-07-22 15:43] VITALS: BP 151/71
[2017-07-22 15:50] VITALS: BP 163/74
[2017-07-22 18:04] VITALS: BP 130/62; BP 136/58
[2017-07-22 20:00] VITALS: BP 142/64
[2017-07-22 21:14] LABS: % SATURATION 23 % (20-39); IRON 119 ug/dL (65-175); TIBC 509 ug/dL (250-450); UIBC 390 ug/dL
[2017-07-22 22:03] VITALS: BP 136/58; BP 146/59; BP 148/77
[2017-07-23 04:30] VITALS: BP 125/65
[2017-07-23 05:22] LABS: HEMATOCRIT 27.6 % (42.0-52.0); HEMOGLOBIN 8.8 gm/dL (14.0-18.0)
[2017-07-23 08:40] VITALS: BP 137/67
[2017-07-23 11:22] LABS: HEMATOCRIT 27.5 % (42.0-52.0); HEMOGLOBIN 8.9 gm/dL (14.0-18.0)
[2017-07-23 13:45] VITALS: BP 134/66
[2017-07-23 16:16] VITALS: BP 134/66
== END 2017-07-23 18:20 | disposition home or self-care (01) | DRG 378 ==
LOC: ER 12:08 → 4N 14:25 → EROBS 14:25 → 4N 15:44 → ENTRNSPT 07-23 17:14 → 4N 07-23 18:20
PROVIDERS: Hospitalist; Internal Medicine Gastroenterology; Physician Assistant
PROC: 30233N1 Transfusion of Nonautologous Red Blood Cells into Peripheral Vein, Percutaneous Approach (ICD-10-PCS; 2017-07-22)
PROC: 0W3P8ZZ Control Bleeding in Gastrointestinal Tract, Via Natural or Artificial Opening Endoscopic (ICD-10-PCS; principal; 2017-07-23)
DX: K55.21 Angiodysplasia of colon with hemorrhage (principal); D62 Acute posthemorrhagic anemia; E11.9 Type 2 diabetes mellitus without complications; D50.9 Iron deficiency anemia, unspecified; K21.9 Gastro-esophageal reflux disease without esophagitis; I50.9 Heart failure, unspecified; I11.0 Hypertensive heart disease with heart failure; Z87.19 Personal history of other diseases of the digestive system; Z87.891 Personal history of nicotine dependence
CPT/HCPCS: 10790; 62110; 62900; 70005

== ENCOUNTER 2017-10-14 19:55 | Emergency (ER) | payer OTHER ==
[~2017-10-14] VITALS: Ht 170.2 cm; Wt 68.0 kg
--- NOTE | ~2017-10-14 | EKG ---
[address] [address] ELECTROCARDIOGRAM REPORT Name: NILA MCCOY Roberto Carlos Room #: [facility]#: [id number] Admission: 10/14/17 Attend Phys: Discharge: 10/15/17 Date of : 33 Report #: [id number] THIS REPORT FOR: //name// [facility] ED Test Date: 2017-10-14 Test Time: 21:03:05 Pat Name: NILA MCCOY Department: Room: Gender: M Wet Char Conveyor Tender: MZOOK : 1935 Requested By: Hien Hidalgo Order Number: [id number] MD: Calvin Paul Measurements Intervals [place] Rate: 100 P: -34 NE: 212 QRS: 13 QRSD: 112 T: 39 QT: 353 QTc: 456 Interpretive Statements Sinus tachycardia Borderline prolonged NE interval Abnormal R-wave progression, early transition Compared to ECG 07/22/2017 12:49:29 Atrial premature complex(es) no longer present ST (T wave) deviation no longer present Electronically Signed On 10-15-2017 9:07:13 MEDICAL VAN DRIVER by Calvin Paul [email or web address] <ELECTRONICALLY SIGNED> By: Calvin Paul MD, [facility] 10/15/17 0907 02 02 Calvin Paul MD, [facility] /EPI
[~2017-10-14 19:55] MED LIST changes: +LISINOPRIL40 MG PO
[2017-10-14 21:04] LABS: ABSOLUTE NEUTROPHILS 3.8 thou/uL (1.4-8.2); BASOPHILS 0.5 % (0.0-2.0); EOSINOPHILS 2.6 % (0.0-3.0); HEMATOCRIT 21.6 % (42.0-52.0); MCH 27.2 pg (26.0-34.0); MCHC 32.6 g/dL (28.0-37.0); MCV 83.4 fL (80.0-100.0); PLATELET COUNT 219 thou/uL (150-400); POLYS 77.9 % (36.0-66.0); RBC 2.59 mil/uL (4.50-6.00); RDW 15.9 % (10.5-14.5); WBC 4.9 thou/uL (4.0-11.0)
[2017-10-14 21:15] LABS: ANION GAP 12 mmol/L (7-16); BUN 34 mg/dL (7-18); CALCIUM 8.8 mg/dL (8.5-10.1); CHLORIDE 102 mmol/L (98-107); CO2 21 mmol/L (21-32); CREATININE 1.4 mg/dL (0.7-1.3); GLUCOSE 362 mg/dL (74-106); SODIUM 135 mmol/L (136-145)
[2017-10-14 21:21] LABS: MAGNESIUM 2.3 mg/dL (1.8-2.4); TROPONIN-I < 0.04 ng/mL (<0.06)
[2017-10-15 00:03] VITALS: BP 121/77; BP 131/68; BP 134/61; BP 136/64
[2017-10-15 02:00] VITALS: BP 131/68; BP 136/64; BP 144/64; BP 150/71
[2017-10-15 04:30] VITALS: BP 150/71
[2017-12-28] MEDS ORDERED: VITAMIN B-12500 MCG PO (13:49)
[2017-12-28] MEDS ORDERED: CALCIUM 600 +1 EAC1 PO (13:49)
[2018-04-02] MEDS ORDERED: GLYBURID-METFO1 EAC2 PO (16:21)
== END 2017-10-15 04:15 | disposition home or self-care (01) ==
LOC: ER 19:55
PROVIDERS: Emergency Medicine
DX: D64.9 Anemia, unspecified (principal); R53.1 Weakness

== ENCOUNTER 2017-11-24 09:45 | Emergency (ER) | payer OTHER ==
[~2017-11-24] VITALS: Ht 170.2 cm; Wt 66.7 kg
--- NOTE | ~2017-11-24 | EKG ---
[place] [address] [place] [address] ELECTROCARDIOGRAM REPORT Name: NILA MCCOY Room #: [facility] [id number] Admission: 11/24/17 Attend Phys: Discharge: 11/24/17 Date of : 33 Report #: [id number] THIS REPORT FOR: //name// [facility] ED Test Date: 2017-11-24 Test Time: 10:02:49 Pat Name: NILA MCCOY Department: Room: Gender: M Tankerman: BILLIE : 1935 Requested By: Jose Alejandro Watson Order Number: [id number] MD: Calvin Paul Measurements Intervals [place] Rate: 109 P: -47 [place]: 192 QRS: 17 QRSD: 104 T: -26 QT: 345 QTc: 465 Interpretive Statements Sinus tachycardia Repol abnrml, diffuse leads Compared to ECG 10/14/2017 21:03:05 ST segment abnormality is more pronounced Electronically Signed On 11-24-2017 17:15:37 LOGGING SUPERINTENDENT by Calvin Paul [email or web address] <ELECTRONICALLY SIGNED> By: Calvin Paul MD, [facility] 11/24/17 1715 1002 1002 Calvin Paul MD, FAC /EPI
[2017-11-24 10:23] LABS: ABSOLUTE NEUTROPHILS 2.5 thou/uL (1.4-8.2); BASOPHILS 0.9 % (0.0-2.0); EOSINOPHILS 2.6 % (0.0-3.0); LYMPHOCYTES 12.7 % (24.0-44.0); MCHC 32.5 g/dL (28.0-37.0); MCV 83.3 fL (80.0-100.0); MONOCYTES 7.6 % (1.0-8.0); PLATELET COUNT 183 thou/uL (150-400); POLYS 76.2 % (36.0-66.0); RBC 2.33 mil/uL (4.50-6.00); RDW 18.3 % (10.5-14.5); WBC 3.3 thou/uL (4.0-11.0)
[2017-11-24 10:27] LABS: HEMATOCRIT 19.4 % (42.0-52.0); HEMOGLOBIN 6.3 gm/dL (14.0-18.0)
[2017-11-24 10:29] LABS: ANION GAP 11 mmol/L (7-16); BUN 29 mg/dL (7-18); CALCIUM 8.6 mg/dL (8.5-10.1); CHLORIDE 102 mmol/L (98-107); CO2 27 mmol/L (21-32); CREATININE 1.4 mg/dL (0.7-1.3); GLUCOSE 270 mg/dL (74-106); SODIUM 140 mmol/L (136-145)
[2017-11-24 10:38] LABS: TROPONIN-I < 0.04 ng/mL (<0.06)
[2017-11-24 12:02] VITALS: BP 136/60; BP 141/74; BP 148/68
[2017-11-24 14:55] VITALS: BP 136/61; BP 154/67
[2017-11-24 16:15] VITALS: BP 146/80
[2017-12-28] MEDS ORDERED: CALCIUM 600 +1 EAC1 PO (13:49)
[2017-12-28] MEDS ORDERED: VITAMIN B-12500 MCG PO (13:49)
[2018-04-02] MEDS ORDERED: GLYBURID-METFO1 EAC2 PO (16:21)
== END 2017-11-24 16:15 | disposition home or self-care (01) ==
LOC: ER 09:45
PROVIDERS: Nurse Practitioner
DX: I95.9 Hypotension, unspecified (principal); D64.9 Anemia, unspecified; R06.00 Dyspnea, unspecified; I11.0 Hypertensive heart disease with heart failure; I50.9 Heart failure, unspecified; E11.9 Type 2 diabetes mellitus without complications; G89.29 Other chronic pain; M54.9 Dorsalgia, unspecified; K21.9 Gastro-esophageal reflux disease without esophagitis; Z86.2 Personal history of diseases of the blood and blood-forming organs and certain disorders involving the immune mechanism; Z87.891 Personal history of nicotine dependence; Z79.4 Long term (current) use of insulin

== ENCOUNTER 2017-12-10 01:11 | Emergency (ER) | payer OTHER ==
[~2017-12-10] VITALS: Ht 170.2 cm; Wt 67.1 kg
[2017-12-10 02:20] LABS: RBC 2.41 mil/uL (4.50-6.00)
[2017-12-10 02:21] LABS: MCH 25.5 pg (26.0-34.0); MCHC 32.1 g/dL (28.0-37.0); MCV 79.6 fL (80.0-100.0); RDW 19.5 % (10.5-14.5); WBC 4.5 thou/uL (4.0-11.0)
[2017-12-10 02:23] LABS: CREATININE 1.4 mg/dL (0.7-1.3); HEMATOCRIT 19.2 % (42.0-52.0); POTASSIUM 4.3 mmol/L (3.5-5.1)
[2017-12-10 02:25] LABS: HEMOGLOBIN 6.2 gm/dL (14.0-18.0)
[2017-12-10 02:46] VITALS: BP 134/63; BP 138/60; BP 138/63; BP 148/64; BP 151/70
[2017-12-10 04:41] VITALS: BP 130/57; BP 137/58; BP 142/63; BP 142/66; BP 145/70; BP 151/67
[2017-12-10 06:25] VITALS: BP 134/71
[2017-12-28] MEDS ORDERED: CALCIUM 600 +1 EAC1 PO (13:49)
[2017-12-28] MEDS ORDERED: VITAMIN B-12500 MCG PO (13:49)
[2018-04-02] MEDS ORDERED: GLYBURID-METFO1 EAC2 PO (16:21)
== END 2017-12-10 06:25 | disposition home or self-care (01) ==
LOC: ER 01:11
PROVIDERS: Emergency Medicine
DX: D64.9 Anemia, unspecified (principal); E11.9 Type 2 diabetes mellitus without complications; G89.29 Other chronic pain; M54.9 Dorsalgia, unspecified; I11.0 Hypertensive heart disease with heart failure; I50.9 Heart failure, unspecified; K21.9 Gastro-esophageal reflux disease without esophagitis; Z79.4 Long term (current) use of insulin; Z87.891 Personal history of nicotine dependence

== ENCOUNTER 2017-12-18 19:49 | Emergency (ER) | payer OTHER ==
[~2017-12-18] VITALS: Ht 170.2 cm; Wt 68.0 kg
--- NOTE | ~2017-12-18 | EKG ---
[place] [address] [facility] [place] [address] ELECTROCARDIOGRAM REPORT Name: MARYAM MCCOYISAI Azevedo Room #: DEP [facility]#: [id number] Admission: 12/18/17 Attend Phys: Discharge: 12/19/17 Date of : 33 Report #: [id number] THIS REPORT FOR: //name// [facility] ED Test Date: 2017-12-18 Test Time: 20:00:57 Pat Name: NILA MCCOY Department: Room: Gender: Car Hop: Filemon JUAREZ : 1935 Requested By: Pippa Amado Order Number: [id number] MD: Semaj Baum Measurements Intervals [place] Rate: 105 P: -50 [place]: 180 QRS: 13 QRSD: 100 T: -22 QT: 354 QTc: 468 Interpretive Statements Sinus or ectopic atrial tachycardia Abnormal R-wave progression, early transition Borderline repolarization abnormality Compared to ECG 11/24/2017 10:02:49 Sinus tachycardia no longer present Electronically Signed On 12-19-2017 10:23:46 MIRROR FABRICATION SUPERVISOR by Semaj Baum [email or web address] <ELECTRONICALLY SIGNED> By: Semaj Baum MD 12/19/17 1023 99 99 Semaj Baum MD /EPI
[2017-12-18 20:31] LABS: HEMOGLOBIN 6.6 gm/dL (14.0-18.0)
[2017-12-18 20:34] LABS: ABSOLUTE NEUTROPHILS 2.6 thou/uL (1.4-8.2); BASOPHILS 0.7 % (0.0-2.0); EOSINOPHILS 3.1 % (0.0-3.0); HEMATOCRIT 20.3 % (42.0-52.0); LYMPHOCYTES 13.2 % (24.0-44.0); MCH 26.2 pg (26.0-34.0); MCHC 32.5 g/dL (28.0-37.0); MCV 80.6 fL (80.0-100.0); MONOCYTES 10.2 % (1.0-8.0); PLATELET COUNT 196 thou/uL (150-400); POLYS 72.8 % (36.0-66.0); RBC 2.52 mil/uL (4.50-6.00); RDW 19.8 % (10.5-14.5); WBC 3.6 thou/uL (4.0-11.0)
[2017-12-18 20:49] LABS: ANION GAP 9 mmol/L (7-16); BUN 28 mg/dL (7-18); CALCIUM 8.6 mg/dL (8.5-10.1); CHLORIDE 106 mmol/L (98-107); CO2 23 mmol/L (21-32); CREATININE 1.6 mg/dL (0.7-1.3); GLUCOSE 399 mg/dL (74-106); POTASSIUM 4.1 mmol/L (3.5-5.1); SODIUM 138 mmol/L (136-145)
[2017-12-18 20:58] LABS: TROPONIN-I < 0.04 ng/mL (<0.06)
[2017-12-18 23:08] VITALS: BP 133/71; BP 139/70; BP 142/65
[2017-12-19 01:09] VITALS: BP 133/71; BP 147/79; BP 149/84; BP 150/82; BP 153/75
[2017-12-19 02:57] VITALS: BP 147/79
[2017-12-28] MEDS ORDERED: CALCIUM 600 +1 EAC1 PO (13:49)
[2017-12-28] MEDS ORDERED: VITAMIN B-12500 MCG PO (13:49)
[2018-04-02] MEDS ORDERED: GLYBURID-METFO1 EAC2 PO (16:21)
== END 2017-12-19 02:55 | disposition home or self-care (01) ==
LOC: ER 19:49
PROVIDERS: Nurse Practitioner Family
DX: R06.02 Shortness of breath (principal); E11.9 Type 2 diabetes mellitus without complications; K21.9 Gastro-esophageal reflux disease without esophagitis; I11.0 Hypertensive heart disease with heart failure; I50.9 Heart failure, unspecified; Z87.891 Personal history of nicotine dependence

== ENCOUNTER 2018-01-03 03:02 | Emergency (ER) | payer OTHER ==
[~2018-01-03] VITALS: Ht 170.2 cm; Wt 68.0 kg
[~2018-01-03 03:02] MED LIST changes: +VITAMIN B-12500 MCG PO
[2018-01-03 03:32] LABS: HEMATOCRIT 20.9 % (42.0-52.0); HEMOGLOBIN 6.9 gm/dL (14.0-18.0); MCHC 32.9 g/dL (28.0-37.0); WBC 4.7 thou/uL (4.0-11.0)
[2018-01-03 03:34] LABS: MCH 26.2 pg (26.0-34.0); MCV 79.4 fL (80.0-100.0); RBC 2.64 mil/uL (4.50-6.00); RDW 19.5 % (10.5-14.5)
[2018-01-03 06:08] VITALS: BP 118/59; BP 124/56; BP 126/47; BP 126/58; BP 129/50
[2018-01-03 08:05] VITALS: BP 126/47
[2018-04-02] MEDS ORDERED: GLYBURID-METFO1 EAC2 PO (16:21)
== END 2018-01-03 08:06 | disposition home or self-care (01) ==
LOC: ER 03:02
PROVIDERS: Emergency Medicine
DX: D62 Acute posthemorrhagic anemia (principal); E11.9 Type 2 diabetes mellitus without complications; K21.9 Gastro-esophageal reflux disease without esophagitis; I11.0 Hypertensive heart disease with heart failure; I50.9 Heart failure, unspecified; G89.29 Other chronic pain; M54.9 Dorsalgia, unspecified; Z87.891 Personal history of nicotine dependence

== ENCOUNTER → 2018-01-06 | Outpatient (CLI) | payer OTHER ==
[~2018-01-06] VITALS: Ht 170.2 cm; Wt 63.5 kg
[~2018-01-06] MED LIST changes: +AUGMENTIN 875-1 EACH PO; +VITAMIN D2000 UNIT PO
--- NOTE | ~2018-01-06 | P ---
[facility] [place] [address] PROCEDURE REPORT Name: NADINENILA BONDS JR Room #: REG [facility]#: [id number] Admission: 01/06/18 Attend Phys: Molina Goodrich MD Discharge: Date of : 33 Report #: [id number] THIS REPORT FOR: //name// CC: ALEJANDRO physician/PCP Molina Goodrich DATE OF SERVICE: 01/06/2018 COLONOSCOPY BRIEF HISTORY: The patient is an 82-year-old male with known AVMs of the colon, who has continued to require iron infusions as well as blood transfusions on a frequent basis. He presents for a colonoscopy to further evaluate for and treat arteriovenous malformations of his colon. PREOPERATIVE DIAGNOSIS: Continued gastrointestinal blood loss. POSTOPERATIVE DIAGNOSES: 1. Multiple arteriovenous malformations, nonbleeding, proximal colon. 2. Scattered diminutive polyps. 3. Internal hemorrhoids. MEDICATIONS: Deep sedation with propofol per anesthesia. SPECIMEN: Multiple colon polyps. ESTIMATED BLOOD LOSS: 3 mL PROCEDURE: Colonoscopy to cecum and terminal ileum with biopsy and argon plasma coagulation of arteriovenous malformations of the colon. FINDINGS: Prior to propofol sedation, procedure of colonoscopy discussed with the patient as well as potential risks and its complications. He indicates he understands and desires to proceed. DESCRIPTION OF PROCEDURE: With the patient in left lateral decubitus position, digital examination was completed, which revealed no abnormalities. Subsequently, the [employer] video colonoscope was introduced into the rectum and under direct vision to the cecum. Done with minimal difficulty. The cecum was identified by the ileocecal valve and appendiceal orifice. I was able to briefly advance the tip of the scope into the mouth, the ileocecal valve and see the villous pattern. No obvious AVMs or bleeding was seen. Due to looping of the scope, I could not deeply intubate the distal small bowel. At that point, the scope was withdrawn and careful circumferential were obtained. Multiple nonbleeding AVMs were seen in the proximal colon including the cecum, ascending colon and proximal transverse colon. There were about 8 or so AVMs. None of [address] [address] PROCEDURE REPORT Name: NILA MCCOY Room #: REG [facility].#: [id number] Admission: 01/06/18 Attend Phys: Molina Goodrich MD Discharge: Date of : 33 Report #: [id number] them were bleeding. Some of them were small, only a couple of millimeters, one in particular was large and probably measured at least 2.5 cm in greatest dimension. All were treated with argon plasma coagulation. In addition, as we withdrew the scope, 2 diminutive polyps were seen in the proximal ascending colon and one in the proximal transverse colon. These were removed by biopsy. Scope was further withdrawn. No additional abnormalities were noted until the rectum was reached and upon retroflexion, hemorrhoids were seen. There did appear to be fairly prominent veins in the rectum as well. Please see upper endoscopy report for additional comments. Scope was withdrawn. The patient tolerated the procedure well. CONDITION OF THE PATIENT UPON DISCHARGE: Following the procedure, the patient was drowsy and will be discharged home when fully ambulatory. INSTRUCTIONS TO THE PATIENT AND FAMILY AT THE TIME OF DISCHARGE: He will continue to follow up with Dr. Emiliano Weber for monitoring of his hemoglobin and transfusions, iron infusions as needed. As noted on the upper endoscopy report, I was suspicious that there may be some small esophageal varices. We will discuss with Dr. Weber with regards to liver disease and previous evaluation, which may have been done in the past or may be needed in the future. Continue to transfuse blood and iron as needed. More than likely, we will probably need to repeat this exam. In the future, given the length of the procedures, I think it is probably best for this patient to split up the procedures rather than doing both colon and small bowel endoscopy at the same settings. <ELECTRONICALLY SIGNED> By: Molina Goodrich MD 01/06/18 1334 0913 0939 Molina Goodrich MD /nt
--- NOTE | ~2018-01-06 | P ---
[facility] [place] [address] PROCEDURE REPORT Name: NILA MCCOY Roberto Carlos CHASE Room #: REG [facility]#: [id number] Admission: 01/06/18 Attend Phys: Molina Goodrich MD Discharge: Date of : 33 Report #: [id number] THIS REPORT FOR: //name// CC: [facility] physician/PCP Molina Weber MD DATE OF SERVICE: 01/06/2018 OUTPATIENT SMALL BOWEL ENDOSCOPY REPORT BRIEF HISTORY: The patient is an 82-year-old patient well known to me with history of gastrointestinal blood loss with known AVMs of the GI tract with continued requirement for blood transfusion and iron infusions. POSTOPERATIVE DIAGNOSES: 1. 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 2. Multiple small polyps of the duodenum. 3. Multiple atrioventricular malformations of the stomach. 4. Questionable small esophageal varices. MEDICATIONS: Deep sedation with propofol per anesthesia. SPECIMEN: Small bowel biopsies. ESTIMATED BLOOD LOSS: 3 mL PROCEDURE: Small bowel endoscopy with hemostasis and biopsy. FINDINGS: Prior to propofol sedation, procedure of small bowel endoscopy was reviewed with the patient as well as potential risks and its complications. He indicates he understands and desires to proceed. With the patient in left lateral decubitus position, the Huixiaoeri pediatric colonoscope was advanced in the mouth under direct vision. It was guided through the esophagus, stomach, across pylorus and duodenum. We then passed the scope as far as we could into the upper jejunum. Upon insertion and withdrawal of the scope, multiple nonbleeding AVMs were seen. They range in size of about 2-4 mm. None of them were actively bleeding. With use of argon plasma coagulation, we treated about a dozen AVMs with good hemostasis. In addition, in the duodenum, there were scattered small polyps, some were several millimeters and others were a little large in the range about 5-6 mm and flat. These polypoid lesions raise the possibility of duodenal adenomas and multiple biopsies were obtained. We withdrew the scope back in the stomach and again at least 6 nonbleeding AVMs were seen in the stomach. All were treated with argon plasma coagulation. Upon retroflexion, no additional abnormalities were seen. [facility] [address] [place] [address] PROCEDURE REPORT Name: MARYAM MCCOYISAI Azevedo Room #: REG [facility]#: [id number] Admission: 01/06/18 Attend Phys: Molina Goodrich MD Discharge: Date of : 33 Report #: [id number] As we withdrew the scope to the esophagus, a venous pattern was seen. This raised the possibility of very small varices. They were fairly subtle. The esophagitis otherwise is unremarkable. Normal mucosa without evidence of bleeding. Scope was withdrawn. The patient tolerated the procedure well. CONDITION OF THE PATIENT UPON DISCHARGE: The patient is drowsy. He was then prepared for colonoscopy. INSTRUCTIONS TO THE PATIENT AND FAMILY AT THE TIME OF DISCHARGE: This patient has a history of AVMs and multiple lesions were treated today. He continues to require frequent blood transfusions, frequent iron infusions. Consider further investigations such as repeat a capsule endoscopy; however, each time we did do small bowel endoscopy, multiple lesions were found in the stomach, duodenum and proximal jejunum. We will follow up on biopsies with regard to the possible duodenal adenomas and make further recommendations. I am not aware the patient has liver disease, but the question of varices is noted. Consider further evaluation such as ultrasound or CT. He will continue to follow up with Dr. Weber and continue iron infusions and blood transfusions, may need to consider repeat small bowel endoscopy. Also, consider capsule endoscopy. Consider repeat colonoscopy and potentially may need to consider referral for double balloon endoscopy of the small bowel. <ELECTRONICALLY SIGNED> By: Molina Goodrich MD 01/06/18 1334 0839 0907 Molina Goodrich MD /nt
--- NOTE | ~2018-01-06 | S ---
[facility] [place] [address] SURGICAL PATH RPT PROCEDURE Name: MARYAM RUIZISAI Azevedo Room #: REG [facility].#: [id number] Admission: 01/06/18 Date of : 33 Discharge: Report #: [id number] Path Case #: [id number] PATHOLOGY REPORT COLLECTION DATE: 01/06/2018 RECEIVED DATE: 01/06/2018 SUBMITTING PHYS: Dr. Molina Goodrich OTHER PHYS: SPECIMEN(S) RECEIVED: A.Bx duodenal polyps B.Polyp at proximal ascending x2 colon C.Polyp at proximal transverse colon * * * * * * * * * * * * FINAL DIAGNOSIS: A. Polyp, duodenal polyp, endoscopic biopsy: - Tubular adenoma. - Negative for high-grade dysplasia. B. Polyp, proximal ascending colon x 2, endoscopic biopsy: - Tubular adenoma. - Negative for high-grade dysplasia. C. Polyp, proximal transverse colon, endoscopic biopsy: - Tubular adenoma. - Negative for high-grade dysplasia. COMMENT: Co-review (Part A only): Dr. Cat Kaur (IUV:mgr; 01/07/2018) PATHOLOGIST: Agueda Cruz M.D. REPORT ELECTRONICALLY SIGNED BY: Agueda Cruz M.D. DATE/TIME: 01/07/2018 15:06 * * * * * * * * * * * * GROSS PATHOLOGY: A. Received in formalin labeled "Adebayo Joseph, BX duodenal polyp," and additionally labeled on the requisition as "polyps," are 3 segments of santos soft tissue measuring 1.0 x 0.9 x 0.2 cm in aggregate dimensions and ranging from 0.3 to 0.5 cm in maximum dimension. The specimen is submitted entirely in cassette A1. B. Received in formalin labeled "Adebayo Ruiz, polyp at proximal ascending colon," are 4 segments of santos soft tissue measuring 1.4 x 0.8 x 0.2 cm in aggregate dimensions and ranging from 0.3 to 0.4 cm in maximum dimension. The specimen is submitted entirely in cassette B1. [address] [address] SURGICAL PATH RPT PROCEDURE Name: ADEBAYO RUIZ Room #: REG [facility]#: [id number] Admission: 01/06/18 Date of : 33 Discharge: Report #: [id number] Path Case #: [id number] C. Received in formalin labeled "Adebayo Ruiz, proximal transverse colon," is a segment of santos soft tissue measuring 0.4 cm in maximum dimension. The specimen is submitted entirely in cassette C1. (TSD; 01/06/2018) CLINICAL HISTORY: Pre-OP DX: Anemia Post-OP DX: Duodenal polyps, AVMs, esophageal "varacies", AVMs of colon, colon polyps, hemorrhoids INITIAL CPT CODE(S): A; 02514 B; 31722 C; 67468 Professional services performed by [facility] at [address] [place] [address] Technical services performed by [facility] at [address] [place] [address], [address], [place] [address]. [facility] [address] [place] [address] PHONE: [phone] DIRECTOR: Fabrice Kerr M.D. * * * END OF REPORT * * *
== END | disposition home or self-care (01) ==
LOC: GI 06:24
DX: D12.2 Benign neoplasm of ascending colon (principal); D12.3 Benign neoplasm of transverse colon; K55.20 Angiodysplasia of colon without hemorrhage; K64.8 Other hemorrhoids; D13.2 Benign neoplasm of duodenum; K31.819 Angiodysplasia of stomach and duodenum without bleeding; I85.00 Esophageal varices without bleeding; I11.0 Hypertensive heart disease with heart failure; I50.9 Heart failure, unspecified; E11.9 Type 2 diabetes mellitus without complications; E78.5 Hyperlipidemia, unspecified; D64.9 Anemia, unspecified; K21.9 Gastro-esophageal reflux disease without esophagitis; Z79.4 Long term (current) use of insulin; Z87.891 Personal history of nicotine dependence; Z98.890 Other specified postprocedural states; Z79.899 Other long term (current) drug therapy
CPT/HCPCS: 62110; 62900

== ENCOUNTER 2018-01-14 05:35 | Inpatient (IN) | payer OTHER ==
[~2018-01-14] VITALS: Ht 170.2 cm; Wt 65.8 kg
[2018-01-14] VITALS (7 sets, daily range): BP systolic 124–1308; BP diastolic 53–79
[~2018-01-14 05:35] MED LIST changes: -AUGMENTIN 875-1 EACH PO; -VITAMIN D2000 UNIT PO
[2018-01-14 05:57] LABS: ABSOLUTE NEUTROPHILS 3.6 thou/uL (1.4-8.2); BASOPHILS 0.5 % (0.0-2.0); EOSINOPHILS 1.9 % (0.0-3.0); HEMOGLOBIN 7.4 gm/dL (14.0-18.0); LYMPHOCYTES 14.7 % (24.0-44.0); MCH 24.9 pg (26.0-34.0); MCHC 32.3 g/dL (28.0-37.0); MCV 77.1 fL (80.0-100.0); MONOCYTES 9.4 % (1.0-8.0); PLATELET COUNT 235 thou/uL (150-400); POLYS 73.5 % (36.0-66.0); RBC 2.98 mil/uL (4.50-6.00); WBC 4.8 thou/uL (4.0-11.0)
[2018-01-14 06:11] LABS: CALCIUM 9.2 mg/dL (8.5-10.1); CREATININE 1.5 mg/dL (0.7-1.3); POTASSIUM 4.2 mmol/L (3.5-5.1)
[2018-01-14 06:16] LABS: ALBUMIN 3.9 g/dL (3.4-5.0); TOTAL BILIRUBIN 0.4 mg/dL (<0.1-1.0); TOTAL PROTEIN 7.6 g/dL (6.4-8.2)
[2018-01-14 06:46] LABS: % SATURATION 4 % (20-39); IRON 21 ug/dL (65-175); TIBC 489 ug/dL (250-450)
[2018-01-14 08:52] LABS: PROTIME 9.6 Seconds (9.3-11.4)
[2018-01-14 08:53] LABS: AMYLASE 101 U/L (25-115); LIPASE 396 U/L (73-393)
[2018-01-14 09:26] LABS: ALBUMIN 3.7 g/dL (3.4-5.0); DIRECT BILIRUBIN 0.1 mg/dL (<0.1-0.3); TOTAL BILIRUBIN 0.3 mg/dL (<0.1-1.0); TOTAL PROTEIN 7.4 g/dL (6.4-8.2)
[2018-01-14 17:09] LABS: GLYCOHEMOGLOBIN (HGB A1C) 8.1 % (4.8-5.6)
[2018-01-14 18:10] LABS: ALPHA FETOPROTEIN-TUMOR* 3.8 ng/mL (0.0-8.3); CRP HIGHLY SENSITIVE 0.76 mg/L (0.00-3.00); HEPATITIS B SURFACE AG Negative (Negative); HEPATITIS C VIRUS AB <0.1 (0.0-0.9)
[2018-01-15 03:46] VITALS: BP 129/59
[2018-01-15 07:10] VITALS: BP 109/52
[2018-01-15 11:34] LABS: HEMATOCRIT 24.4 % (42.0-52.0); HEMOGLOBIN 7.9 gm/dL (14.0-18.0); MCH 25.2 pg (26.0-34.0); MCHC 32.5 g/dL (28.0-37.0); MCV 77.7 fL (80.0-100.0); RBC 3.14 mil/uL (4.50-6.00); RDW 19.1 % (10.5-14.5); WBC 3.7 thou/uL (4.0-11.0)
[2018-01-15 15:10] VITALS: BP 130/49
[2018-01-15 19:51] VITALS: BP 136/58
[2018-01-16 03:47] VITALS: BP 138/57
[2018-01-16 06:27] LABS: HEMATOCRIT 23.7 % (42.0-52.0); HEMOGLOBIN 7.7 gm/dL (14.0-18.0); MCH 25.1 pg (26.0-34.0); MCHC 32.3 g/dL (28.0-37.0); MCV 77.7 fL (80.0-100.0); RBC 3.05 mil/uL (4.50-6.00); RDW 19.2 % (10.5-14.5); WBC 4.7 thou/uL (4.0-11.0)
[2018-01-16 08:00] VITALS: BP 144/58
[2018-01-16 16:00] VITALS: BP 122/53
[2018-01-16 19:42] VITALS: BP 102/56
[2018-01-16 20:35] VITALS: BP 121/51
[2018-01-17 03:29] VITALS: BP 133/51
[2018-01-17 06:31] LABS: HEMATOCRIT 25.6 % (42.0-52.0); HEMOGLOBIN 8.1 gm/dL (14.0-18.0); MCH 24.9 pg (26.0-34.0); MCHC 31.8 g/dL (28.0-37.0); MCV 78.3 fL (80.0-100.0); RBC 3.26 mil/uL (4.50-6.00); RDW 19.2 % (10.5-14.5); WBC 5.2 thou/uL (4.0-11.0)
[2018-01-17 07:53] VITALS: BP 114/51
[2018-01-17 10:58] VITALS: BP 114/51
[2018-01-17 11:32] VITALS: BP 114/51
[2018-01-17 15:10] LABS: CERULOPLASMIN 25.4 mg/dL (16.0-31.0)
== END 2018-01-17 12:12 | disposition home or self-care (01) | DRG 377 ==
LOC: ER 05:35 → 4W 06:44 → EROBS 06:44 → 4W 09:17 → ENTRNSPT 01-17 12:03 → EDTRNSPTSTS 01-17 12:07 → 4W 01-17 12:12
PROVIDERS: Emergency Medicine; Hospitalist; Internal Medicine Gastroenterology; Nurse Practitioner
PROC: 0D768ZZ Dilation of Stomach, Via Natural or Artificial Opening Endoscopic (ICD-10-PCS; principal; 2018-01-14)
PROC: 0D7A8ZZ Dilation of Jejunum, Via Natural or Artificial Opening Endoscopic (ICD-10-PCS; principal; 2018-01-14)
PROC: 0D798ZZ Dilation of Duodenum, Via Natural or Artificial Opening Endoscopic (ICD-10-PCS; principal; 2018-01-14)
PROC: 30233N1 Transfusion of Nonautologous Red Blood Cells into Peripheral Vein, Percutaneous Approach (ICD-10-PCS; principal; 2018-01-14)
DX: K55.21 Angiodysplasia of colon with hemorrhage (principal); E43 Unspecified severe protein-calorie malnutrition; N17.9 Acute kidney failure, unspecified; D62 Acute posthemorrhagic anemia; K31.7 Polyp of stomach and duodenum; E11.9 Type 2 diabetes mellitus without complications; I11.0 Hypertensive heart disease with heart failure; K21.9 Gastro-esophageal reflux disease without esophagitis; I50.9 Heart failure, unspecified; Z79.4 Long term (current) use of insulin; Z79.899 Other long term (current) drug therapy; Z87.891 Personal history of nicotine dependence
CPT/HCPCS: 10045

== ENCOUNTER 2018-01-18 18:08 | Inpatient (IN) | payer OTHER ==
[2018-01-18] VITALS (12 sets, daily range): BP systolic 103–163; BP diastolic 51–70
[~2018-01-18] VITALS: Ht 170.2 cm; Wt 62.9 kg
--- NOTE | ~2018-01-18 | HC ---
[facility] [place] [address] CONSULTATION Name: NILA MCCOY Room #: 244-P ADM IN M.R.#: [id number] Admission: 01/18/18 Attend Phys: Ramu Lozada MD Discharge: Date of : 31 Report #: [id number] THIS REPORT FOR: //name// CC: Ramu Weber REFERRING PHYSICIAN: Ramu Lozada MD. PRIMARY CARE PHYSICIAN: Emiliano Weber MD. REASON FOR REFERRAL: Infiltrates. HISTORY OF PRESENT ILLNESS: The patient is an 82-year-old male who presents to the Emergency Room with increasing dyspnea. A chest x-ray revealed infiltrates. A pulmonary consultation was requested. He was just hospitalized at [facility] for anemia. He was in fact discharged the morning of the day he returned to the Emergency Room. He was found to be anemic. 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 The patient had received transfusion during this last admission. Presently, he denies any dyspnea, night sweats or chills, chest pain, productive cough. Review of the chest x-ray shows new onset, left-sided infiltrates involving probably the left lower lobe. 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 ALLERGIES: None to medications. HOME MEDICATIONS: Include clonazepam, Lasix, insulin supplements, Protonix, glyburide, Zestril. SOCIAL HISTORY: He is a lifetime nonsmoker. Denies any alcohol use. FAMILY HISTORY: Noncontributory except for father with colon cancer. REVIEW OF SYSTEMS: As mentioned above, otherwise 10-point system review negative. [facility] [address] [place] [address] CONSULTATION Name: NILA MCCOY Room #: 244-[facility] IN [facility]#: [id number] Admission: 01/18/18 Attend Phys: Ramu Lozada MD Discharge: Date of : 31 Report #: [id number] PHYSICAL EXAMINATION: GENERAL: He is awake, alert, in no apparent distress. VITAL SIGNS: Temperature 99.9 degrees Fahrenheit, pulse is 98, respiratory rate is 14, blood pressure 100/48 mmHg, saturation 94%. HEENT: Normocephalic, atraumatic. NECK: Supple, without lymphadenopathy or thyromegaly. CHEST: Breath sounds are fair with a few scattered crackles in the left lung field. No wheezes. CARDIOVASCULAR: Normal S1, S2. There are no murmurs or gallop. There is no JVD. There is no carotid bruit. Pulses are 2+/4+ bilaterally. ABDOMEN: Mildly distended. No organomegaly or masses felt. GENITOURINARY: Deferred. RECTAL: Deferred. EXTREMITIES: There is no edema, cyanosis or clubbing. LABORATORY DATA: Chest x-ray again shows left-sided infiltrates. Electrolytes are normal except for creatinine 1.4. His baseline creatinine appears to be around 1.4. Liver enzymes are unremarkable. WBC 18,700, hemoglobin 7.4, no evidence of bandemia. Albumin 3.7. Arterial blood gas revealed pH 7.35, pCO2 26, pO2 128. IMPRESSION: 1. Left-sided infiltrates in this 82-year-old [place] male. Pneumonia is likely, suspect possible aspiration. Other nosocomial infection should also be considered given his recent hospitalization. 2. History of multiple arteriovenous malformation involving the colon with history of recurrent gastrointestinal bleed, status post argon plasma coagulation. 3. Anemia due to above. Hemoglobin is trending downwards. He also has a history of iron deficiency anemia with indices confirming microcytic hypochromic anemia. 4. Chronic kidney disease with a baseline creatinine of 1.4. The patient appears to have metabolic acidosis with respiratory compensation suggesting sepsis along with his chronic kidney failure. 5. Hypertension. 6. Diabetes mellitus type 2. RECOMMENDATIONS: Agree with broad-spectrum antibiotics. We will cover for possible aspiration pneumonia along with nosocomial infections. Agree with sepsis protocol. DVT and GI prophylaxis is recommended. Thank you for this consultation. <ELECTRONICALLY SIGNED> By: Pop Gandhi MD 01/19/18 1608 1314 1552 Pop Gandhi MD /nt
--- NOTE | ~2018-01-18 | EKG ---
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
[2018-01-18 18:32] LABS: ABSOLUTE NEUTROPHILS 16.8 thou/uL (1.4-8.2); BASOPHILS 0.5 % (0.0-2.0); EOSINOPHILS 0.5 % (0.0-3.0); HEMATOCRIT 30.7 % (42.0-52.0); HEMOGLOBIN 9.5 gm/dL (14.0-18.0); LYMPHOCYTES 4.7 % (24.0-44.0); MCH 25.2 pg (26.0-34.0); MCV 81.3 fL (80.0-100.0); MONOCYTES 1.4 % (1.0-8.0); PLATELET COUNT 304 thou/uL (150-400); POLYS 92.9 % (36.0-66.0); RBC 3.78 mil/uL (4.50-6.00); RDW 20.2 % (10.5-14.5); WBC 18.1 thou/uL (4.0-11.0)
[2018-01-18 18:43] LABS: ANION GAP 15 mmol/L (7-16); BUN 30 mg/dL (7-18); CALCIUM 9.4 mg/dL (8.5-10.1); CHLORIDE 104 mmol/L (98-107); CO2 20 mmol/L (21-32); CREATININE 1.5 mg/dL (0.7-1.3); GLUCOSE 216 mg/dL (74-106); POTASSIUM 4.6 mmol/L (3.5-5.1); SODIUM 139 mmol/L (136-145)
[2018-01-18 18:48] LABS: BE(vivo) -9.7 mmol/L (-2 to +3); HCO3 14.4 mmol/L (22.0-26.0); PCO2 26.1 mmHg (35.0-45.0); PO2 128.8 mmHg (80.0-100.0); pH 7.359 (7.360-7.450); sO2 98.5 % (92.0-98.0)
[2018-01-18 18:52] LABS: SGOT 38 U/L (15-37); SGPT 64 U/L (30-65); TOTAL BILIRUBIN 0.8 mg/dL (<0.1-1.0); TOTAL PROTEIN 7.6 g/dL (6.4-8.2); TROPONIN-I < 0.04 ng/mL (<0.06)
[2018-01-19] VITALS (52 sets, daily range): BP systolic 93–135; BP diastolic 38–67
[2018-01-19 03:58] LABS: CALCIUM 8.1 mg/dL (8.5-10.1); CREATININE 1.4 mg/dL (0.7-1.3); POTASSIUM 4.3 mmol/L (3.5-5.1)
[2018-01-19 04:04] LABS: HEMATOCRIT 23.4 % (42.0-52.0); MCH 25.1 pg (26.0-34.0); MCHC 31.5 g/dL (28.0-37.0); MCV 79.8 fL (80.0-100.0); RBC 2.94 mil/uL (4.50-6.00); RDW 20.2 % (10.5-14.5); WBC 18.7 thou/uL (4.0-11.0)
[2018-01-19 04:07] LABS: HEMOGLOBIN 7.4 gm/dL (14.0-18.0)
[2018-01-20 00:09] VITALS: BP 108/55
[2018-01-20 03:44] VITALS: BP 111/50
[2018-01-20 07:07] LABS: ABSOLUTE NEUTROPHILS 10.4 thou/uL (1.4-8.2); BASOPHILS 0.4 % (0.0-2.0); EOSINOPHILS 0.7 % (0.0-3.0); HEMATOCRIT 24.2 % (42.0-52.0); HEMOGLOBIN 7.7 gm/dL (14.0-18.0); LYMPHOCYTES 6.4 % (24.0-44.0); MCH 25.2 pg (26.0-34.0); MCHC 31.6 g/dL (28.0-37.0); MCV 79.8 fL (80.0-100.0); MONOCYTES 5.4 % (1.0-8.0); PLATELET COUNT 150 thou/uL (150-400); POLYS 87.1 % (36.0-66.0); RBC 3.04 mil/uL (4.50-6.00); RDW 20.7 % (10.5-14.5); WBC 11.9 thou/uL (4.0-11.0)
[2018-01-20 07:21] LABS: CALCIUM 8.8 mg/dL (8.5-10.1); CREATININE 1.2 mg/dL (0.7-1.3)
[2018-01-20 07:30] VITALS: BP 101/49
[2018-01-20 12:00] VITALS: BP 102/68
[2018-01-20 16:20] VITALS: BP 123/56
[2018-01-20 19:30] VITALS: BP 142/62
[2018-01-21 04:20] VITALS: BP 109/47
[2018-01-21 06:07] LABS: ABSOLUTE NEUTROPHILS 6.1 thou/uL (1.4-8.2); BASOPHILS 0.3 % (0.0-2.0); EOSINOPHILS 1.9 % (0.0-3.0); HEMATOCRIT 22.3 % (42.0-52.0); HEMOGLOBIN 7.2 gm/dL (14.0-18.0); LYMPHOCYTES 10.6 % (24.0-44.0); MCH 25.5 pg (26.0-34.0); MCHC 32.2 g/dL (28.0-37.0); MCV 79.1 fL (80.0-100.0); MONOCYTES 5.5 % (1.0-8.0); PLATELET COUNT 141 thou/uL (150-400); POLYS 81.7 % (36.0-66.0); RBC 2.82 mil/uL (4.50-6.00); RDW 20.9 % (10.5-14.5); WBC 7.5 thou/uL (4.0-11.0)
[2018-01-21 08:01] VITALS: BP 119/60
[2018-01-21] MEDS ORDERED: AUGMENTIN 875-1 EACH PO (08:20)
[2018-01-21 10:22] VITALS: BP 119/60
== END 2018-01-21 12:50 | disposition home or self-care (01) | DRG 871 ==
LOC: ER 18:08 → EROBS 19:26 → ICU 19:26 → 3W 01-19 18:19 → ENTRNSPT 01-21 12:43 → EDTRNSPTSTS 01-21 12:45 → 3W 01-21 12:50
PROVIDERS: Emergency Medicine; Hospitalist; Internal Medicine Pulmonary Disease
DX: A41.9 Sepsis, unspecified organism (principal); J18.9 Pneumonia, unspecified organism; J96.01 Acute respiratory failure with hypoxia; I85.00 Esophageal varices without bleeding; D62 Acute posthemorrhagic anemia; I13.0 Hypertensive heart and chronic kidney disease with heart failure and stage 1 through stage 4 chronic kidney disease, or unspecified chronic kidney disease; Z86.010 Personal history of colon polyps; R65.20 Severe sepsis without septic shock; G89.29 Other chronic pain; M54.9 Dorsalgia, unspecified; K21.9 Gastro-esophageal reflux disease without esophagitis; I50.9 Heart failure, unspecified; N18.9 Chronic kidney disease, unspecified; E11.22 Type 2 diabetes mellitus with diabetic chronic kidney disease; D64.9 Anemia, unspecified; D50.9 Iron deficiency anemia, unspecified; R14.0 Abdominal distension (gaseous); G72.9 Myopathy, unspecified; Z79.4 Long term (current) use of insulin; Z87.19 Personal history of other diseases of the digestive system; Z87.891 Personal history of nicotine dependence; Q27.33 Arteriovenous malformation of digestive system vessel
CPT/HCPCS: 10078; 10879

== ENCOUNTER → 2018-01-18 | Outpatient (CLI) | payer OTHER ==
--- NOTE | ~2018-01-18 | S ---
[facility] [address] [place] [address] SURGICAL PATH RPT PROCEDURE Name: NILA MCCOY Room #: REG [facility]#: [id number] Admission: 01/18/18 Date of : 33 Discharge: Report #: [id number] Path Case #: [id number] PATHOLOGY REPORT DRAFT COLLECTION DATE: 01/18/2018 RECEIVED DATE: 01/19/2018 SPECIMEN(S) RECEIVED: A.Duodenal polyps 3rd portion duodenum B.2nd portion duodenum bx polyp
--- NOTE | ~2018-01-18 | P ---
[facility] [place] [address] PROCEDURE REPORT Name: NADINENILA BONDS JR Room #: REG [facility].#: [id number] Admission: 01/18/18 Attend Phys: Molina Goodrich MD Discharge: Date of : 33 Report #: [id number] THIS REPORT FOR: //name// CC: Molina Weber BRIEF HISTORY: The patient is an 82-year-old male with history of recurrent GI bleeding related to arteriovenous malformations of the GI tract. He was treated 2 weeks ago with multiple AVMs treated during colonoscopy and small bowel endoscopy. Since that time, he has had further drop in hemoglobin and required brief hospitalization, blood transfusion. Small bowel capsule study was obtained and again AVMs were seen in the stomach, in the proximal small bowel. Multiple were seen in the duodenum and proximal jejunum. There was also a segment of either distal duodenum or proximal jejunum that was coated with bright red blood, thus indicating at least that source of bleeding was very proximal. He presents now today for small bowel endoscopy. In addition, he was noted to have duodenal adenomas on his previous small bowel endoscopy. PREOPERATIVE DIAGNOSIS: Recurrent upper gastrointestinal bleeding. POSTOPERATIVE DIAGNOSES: 1. Multiple small bowel arteriovenous malformations. 2. Multiple gastric arteriovenous malformations. 3. Multiple duodenal polyps. 4. Grade 1 esophageal varices. MEDICATIONS: Deep sedation with propofol per Anesthesia. SPECIMEN: 1. Duodenum polyps. Third portion of duodenum. 2. Second portion duodenal polyp. ESTIMATED BLOOD LOSS: 7-10 mL. PROCEDURE: Small bowel endoscopy with argon plasma coagulation of multiple AVMs, snare polypectomy of duodenal polyps and placement of hemostatic clips at polypectomy site. FINDINGS: Prior to propofol sedation, procedure of small bowel endoscopy was reviewed with the patient with all potential risks, benefits and complications. He indicates he understands and desires to proceed. DESCRIPTION OF PROCEDURE: With the patient in left lateral position, the [employer] pediatric video colonoscope was introduced to the oropharynx and advanced under direct vision to the esophagus. On his previous endoscopic evaluation, I was questioning whether early esophageal varices were present. Today, I feel that [facility] [address] [place] [address] PROCEDURE REPORT Name: NILA MCCOY Room #: REG [facility].#: [id number] Admission: 01/18/18 Attend Phys: Molina Goodrich MD Discharge: Date of : 33 Report #: [id number] he has grade 1 esophageal varices. Stigmata bleeding were not seen. Scope was advanced in the stomach, was examined on end view as well as retroflexed views. We saw AVMs initially on introduction and also upon withdrawal of the scope, a total of 6 nonbleeding AVMs were treated in the stomach. The largest was about 3 mm or so. The pylorus is unremarkable. Upon retroflexion, no mass lesions were seen. Examination of duodenal sweep as well as the upper jejunum as far as we can advance the scope revealed multiple AVMs. Six gastric AVMs were treated and a total of at least 16 small bowel AVMs were treated. The vast majority were in the distal duodenum in the very proximal segment of the jejunum. As we advanced the scope further, we saw a fewer AVMs. None of them were actively bleeding. They range in size from about 2-3 mm, all the way up to 5-6 mm. All AVMs identified were treated successfully with argon plasma coagulation. In addition, in the duodenum and in particular third portion of duodenum, a triangular shaped flat polyp was seen and removed by cold snare polypectomy. It was about 6 mm in greatest dimension. In addition, a diminutive duodenal polyp was seen and removed by biopsy. In the second portion of duodenum just distal to the bulb, another flat polyp was seen and removed by cold snare polypectomy, biopsy forceps. The scope was further withdrawn. No additional abnormalities were noted. Also, let me clarify that the larger polyp and third portion of duodenum, blood more than expected after polypectomy. Bleeding was controlled with placement of 2 hemostatic clips. At that point, the scope was shortened and careful circumferential views confirmed the above findings. The patient tolerated the procedure well. CONDITION OF THE PATIENT UPON DISCHARGE: Following procedure, the patient drowsy and will be discharged home when fully ambulatory. INSTRUCTIONS TO THE PATIENT AND FAMILY AT THE TIME OF DISCHARGE: The patient with continued gastrointestinal bleeding. On his last session, multiple small bowel and colonic AVMs were identified and treated. Today, 22 lesions were treated in the proximal small bowel and stomach. Hopefully, this will have impact on his blood loss. He should follow up with Dr. Emiliano Weber for monitoring hemoglobin. He should continue with iron replacement. If there is further bleeding, we may need to repeat a small bowel endoscopy. Potentially double balloon endoscopy may be indicated to reach the deeper small bowel. We also discussed with Dr. Weber the findings of esophageal varices. This patient is not known to have liver disease. <ELECTRONICALLY SIGNED> By: Molina Goodrich MD 01/18/182031 1346 170 Molina Goodrich MD /nt
== END ==
LOC: GI 08:33
DX: K55.20 Angiodysplasia of colon without hemorrhage (principal); K31.819 Angiodysplasia of stomach and duodenum without bleeding; D50.0 Iron deficiency anemia secondary to blood loss (chronic); K31.7 Polyp of stomach and duodenum; I85.00 Esophageal varices without bleeding; I10 Essential (primary) hypertension; E11.9 Type 2 diabetes mellitus without complications; Z79.4 Long term (current) use of insulin; Z79.899 Other long term (current) drug therapy; Z98.890 Other specified postprocedural states
CPT/HCPCS: 62110; 62900

== ENCOUNTER 2018-01-28 07:26 | Inpatient (IN) | payer OTHER ==
[2018-01-28] VITALS (7 sets, daily range): BP systolic 123–154; BP diastolic 50–68
[~2018-01-28] VITALS: Ht 162.6 cm; Wt 63.5 kg
--- NOTE | ~2018-01-28 | EKG ---
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
[~2018-01-28 07:26] MED LIST changes: +AUGMENTIN 875-1 EACH PO
[2018-01-28 07:58] LABS: HEMATOCRIT 23.8 % (42.0-52.0); HEMOGLOBIN 7.6 gm/dL (14.0-18.0); MCH 26.2 pg (26.0-34.0); MCV 81.7 fL (80.0-100.0); PLATELET COUNT 340 thou/uL (150-400); RBC 2.91 mil/uL (4.50-6.00); RDW 23.4 % (10.5-14.5); WBC 4.9 thou/uL (4.0-11.0)
[2018-01-28 08:05] LABS: CALCIUM 9.4 mg/dL (8.5-10.1); CREATININE 1.3 mg/dL (0.7-1.3); POTASSIUM 3.8 mmol/L (3.5-5.1)
[2018-01-28 08:21] LABS: ABSOLUTE NEUTROPHILS 3.8 thou/uL (1.4-8.2); ANISOCYTOSIS 1+
[2018-01-28] MEDS ORDERED: VITAMIN D2000 UNIT PO (17:11)
== END 2018-01-28 18:13 | disposition home or self-care (01) | DRG 812 ==
LOC: ER 07:26 → EROBS 08:33 → 4E 13:06 → ENTRNSPT 18:01 → 4E 18:13
PROVIDERS: Emergency Medicine
PROC: 30233N1 Transfusion of Nonautologous Red Blood Cells into Peripheral Vein, Percutaneous Approach (ICD-10-PCS; principal; 2018-01-28)
DX: D62 Acute posthemorrhagic anemia (principal); Q27.30 Arteriovenous malformation, site unspecified; I85.00 Esophageal varices without bleeding; E11.9 Type 2 diabetes mellitus without complications; G89.29 Other chronic pain; M54.9 Dorsalgia, unspecified; K21.9 Gastro-esophageal reflux disease without esophagitis; I50.9 Heart failure, unspecified; H53.8 Other visual disturbances; E55.9 Vitamin D deficiency, unspecified; Z79.4 Long term (current) use of insulin; Z87.19 Personal history of other diseases of the digestive system; Z87.891 Personal history of nicotine dependence; Z79.899 Other long term (current) drug therapy
CPT/HCPCS: 10183

== ENCOUNTER 2018-02-10 23:20 | Emergency (ER) | payer OTHER ==
[~2018-02-10] VITALS: Ht 170.2 cm; Wt 65.8 kg
--- NOTE | ~2018-02-10 | EKG ---
[address] [address] ELECTROCARDIOGRAM REPORT Name: NILA MCCOY Room #: DEP [facility]#: [id number] Admission: 02/10/18 Attend Phys: Discharge: 02/11/18 Date of : 31 Report #: [id number] THIS REPORT FOR: //name// [facility] ED Test Date: 2018-02-11 Test Time: 00:11:15 Pat Name: NILA MCCOY Department: Room: Gender: Hearing Healthcare Practitioner: JOE : 1935 Requested By: Bg Lopez Order Number: [id number] MD: Calvin Paul Measurements Intervals [place] Rate: 107 P: -62 MD: 184 QRS: 14 QRSD: 99 T: 13 QT: 350 QTc: 467 Interpretive Statements Sinus or ectopic atrial tachycardia Atrial premature complex Borderline repolarization abnormality Compared to ECG 01/28/2018 08:48:29 Atrial premature complex(es) now present Electronically Signed On 02-11-2018 8:40:44 CDT by Calvin Paul [email or web address] <ELECTRONICALLY SIGNED> By: Calvin Paul MD, [facility] 02/11/18 0840 001 Calvin Paul MD, [facility] /EPI
[~2018-02-10 23:20] MED LIST changes: +VITAMIN D2000 UNIT PO
[2018-02-10 23:50] LABS: HEMATOCRIT 23.1 % (42.0-52.0); HEMOGLOBIN 7.3 gm/dL (14.0-18.0); MCH 25.3 pg (26.0-34.0); MCHC 31.4 g/dL (28.0-37.0); MCV 80.6 fL (80.0-100.0); RBC 2.87 mil/uL (4.50-6.00); RDW 19.3 % (10.5-14.5); WBC 4.4 thou/uL (4.0-11.0)
[2018-02-11 00:06] LABS: CALCIUM 8.9 mg/dL (8.5-10.1); CREATININE 1.7 mg/dL (0.7-1.3); POTASSIUM 4.5 mmol/L (3.5-5.1)
== END 2018-02-11 02:11 | disposition home or self-care (01) ==
LOC: ER 23:20
PROVIDERS: Emergency Medicine
DX: D50.9 Iron deficiency anemia, unspecified (principal); Q27.33 Arteriovenous malformation of digestive system vessel; I12.9 Hypertensive chronic kidney disease with stage 1 through stage 4 chronic kidney disease, or unspecified chronic kidney disease; E11.22 Type 2 diabetes mellitus with diabetic chronic kidney disease; N18.9 Chronic kidney disease, unspecified; I11.0 Hypertensive heart disease with heart failure; I50.9 Heart failure, unspecified; K21.9 Gastro-esophageal reflux disease without esophagitis; Z87.891 Personal history of nicotine dependence

== ENCOUNTER 2018-02-27 07:57 | Emergency (ER) | payer OTHER ==
[~2018-02-27] VITALS: Ht 170.2 cm; Wt 67.1 kg
[2018-02-27 08:25] LABS: WBC 3.6 thou/uL (4.0-11.0)
[2018-02-27 08:26] LABS: HEMATOCRIT 20.1 % (42.0-52.0); MCH 24.8 pg (26.0-34.0); MCHC 31.8 g/dL (28.0-37.0); RBC 2.57 mil/uL (4.50-6.00); RDW 18.6 % (10.5-14.5)
[2018-02-27 08:28] LABS: HEMOGLOBIN 6.4 gm/dL (14.0-18.0)
[2018-02-27 08:37] LABS: ANION GAP 11 mmol/L (7-16); BUN 26 mg/dL (7-18); CALCIUM 9.1 mg/dL (8.5-10.1); CHLORIDE 102 mmol/L (98-107); CO2 25 mmol/L (21-32); CREATININE 1.4 mg/dL (0.7-1.3); GLUCOSE 357 mg/dL (74-106); POTASSIUM 3.9 mmol/L (3.5-5.1); SODIUM 138 mmol/L (136-145)
[2018-02-27 08:45] LABS: TROPONIN-I < 0.04 ng/mL (<0.06)
== END 2018-02-27 10:11 | disposition home or self-care (01) ==
LOC: ER 07:57
PROVIDERS: Emergency Medicine
DX: D53.9 Nutritional anemia, unspecified (principal); R06.00 Dyspnea, unspecified; E11.9 Type 2 diabetes mellitus without complications; M54.9 Dorsalgia, unspecified; G89.29 Other chronic pain; K21.9 Gastro-esophageal reflux disease without esophagitis; I50.9 Heart failure, unspecified; I11.0 Hypertensive heart disease with heart failure; Z79.4 Long term (current) use of insulin; Z87.891 Personal history of nicotine dependence

== ENCOUNTER 2019-02-02 16:16 | Emergency (ER) | payer OTHER ==
[~2019-02-02] VITALS: Ht 154.9 cm; Wt 52.2 kg
[2019-02-02 16:42] LABS: ABSOLUTE NEUTROPHILS 2.9 thou/uL (1.4-8.2); BASOPHILS 1.1 % (0.0-2.0); EOSINOPHILS 2.8 % (0.0-3.0); HEMATOCRIT 25.6 % (42.0-52.0); HEMOGLOBIN 8.2 gm/dL (14.0-18.0); LYMPHOCYTES 8.4 % (24.0-44.0); MCH 28.8 pg (26.0-34.0); MCHC 32.2 g/dL (28.0-37.0); MCV 89.5 fL (80.0-100.0); MONOCYTES 9.3 % (1.0-8.0); PLATELET COUNT 173 thou/uL (150-400); POLYS 78.4 % (36.0-66.0); RBC 2.86 mil/uL (4.50-6.00); RDW 17.5 % (10.5-14.5); WBC 3.7 thou/uL (4.0-11.0)
[2019-02-02 16:58] LABS: CALCIUM 8.8 mg/dL (8.5-10.1); CREATININE 1.2 mg/dL (0.7-1.3); POTASSIUM 3.9 mmol/L (3.5-5.1)
[2019-02-02 17:03] LABS: ALBUMIN 3.3 g/dL (3.4-5.0); TOTAL BILIRUBIN 0.3 mg/dL (<0.1-1.0); TOTAL PROTEIN 6.7 g/dL (6.4-8.2)
[2019-02-02 18:26] LABS: APTT 26.1 Seconds (24.5-32.8); PROTIME 9.6 Seconds (9.3-11.4)
[2019-02-02] MEDS ORDERED: IRON325 PO (18:34)
[2019-02-02] MEDS ORDERED: HYDROCORTISONE30 G9 RECTAL (19:09)
[2019-02-02] MEDS ORDERED: ANUSOL-HC25 MG RECTAL (19:09)
[2019-02-02 19:45] VITALS: BP 130/60
== END 2019-02-02 19:46 | disposition home or self-care (01) ==
LOC: ER 16:16
PROVIDERS: Emergency Medicine
DX: K62.5 Hemorrhage of anus and rectum (principal); K64.4 Residual hemorrhoidal skin tags; D64.9 Anemia, unspecified; D72.819 Decreased white blood cell count, unspecified; E11.65 Type 2 diabetes mellitus with hyperglycemia; G89.29 Other chronic pain; K21.9 Gastro-esophageal reflux disease without esophagitis; I11.0 Hypertensive heart disease with heart failure; I50.9 Heart failure, unspecified; Z79.4 Long term (current) use of insulin; Z79.899 Other long term (current) drug therapy; Z87.891 Personal history of nicotine dependence